=== PATIENT | male | born 1970 | race Caucasian/White ===

== ENCOUNTER 2016-07-06 10:06 | Emergency (ER) | payer MEDICARE, MEDICAID ==
[2016-07-06 10:31] VITALS: TEMP 98.5
--- NOTE | 2016-07-06 11:35 | RAD ---
EXAM DESCRIPTION: X-RAY CHEST- TWO VIEWS CLINICAL HISTORY: Chest pain. COMPARISON: 06/20/2016 TECHNIQUE: 2.0 views of the chest FINDINGS: There are no discrete air space infiltrates, pneumothoraces or pleural effusions. The pulmonary vascularity is normal. The cardiomediastinal silhouette is stable. IMPRESSION: There are no acute lung parenchymal findings. Electronically signed by: Sadi Villeda MD 07/06/2016 11:33
--- NOTE | 2016-07-06 11:52 | ED.PDOC ---
History of Present Illness - General Chief Complaint: Chest Pain/HI Stated Complaint: chest pain Time Seen by Provider: 07/06/16 10:16 Source: patient, RN notes reviewed, Vital Signs reviewed, family Exam Limitations: no limitations - History of Present Illness Initial Comments: Patient is a 45 y/o male who reports he has chest pain. This is an ongoing problem. He was admitted too [facility] two weeks ago for a cardiac workup , which did not show any acute cardiac issues. 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 He does not yet have an appointment. Today the pressure worsened. It is currently 5-6/10. He reports shortness of breath, nausea, diaphoresis and dizziness along with the pain. He currently has one of his father's Nitro patches on (0.4) which has helped with the pain. He also reports a headache. Patient's risk factors: Obese, smoker, father with HI prior to age 50, hyperlipidemia, male. Timing/Duration: getting worse, other - 2 months Severity/Quality: moderate Location: substernal Chest Pain Radiation: neck Activities at Onset: activity - Light Prior Chest Pain/Cardiac Workup: angina, cardiolye scan, echocardiography Improving Factors: medication Worsening Factors: movement Aspirin Treatment Today: provided at home Associated Symptoms: diaphoresis, dizziness, fatigue, headache, nausea/vomiting , shortness of breath, weakness Allergies/Adverse Reactions: Allergies NO KNOWN ALLERGY Allergy (Verified 06/20/16 21:27) Home Medications: Ambulatory Orders Allopurinol [Zyloprim] 100 mg PO BID 09/21/12 Fluoxetine HCl [Prozac] 20 mg PO DAILY 09/21/12 [place] Carbonate [[place] Carbonate ER] 600 mg PO BID 09/21/12 Folic Acid 1 mg PO DAILY 09/04/14 HYDROcodone 7.5MG/APAP 325MG [[place] 7.5/325] 1 ea PO TID 09/04/14 Aspirin [Baby Aspirin] 81 mg PO QD #60 tab 12/16/14 Etanercept [Enbrel] 50 mg SC WKLY 07/06/16 Lisinopril & Hydrochlorothiazi [Lisinopril/Hctz 10-12.5 mg] 1 tab PO DAILY 07/06 Pravachol 07/06/16 Testosterone Cypionate 200 mg IM .[id number] 07/06/16 Past Medical History (General) - Patient Medical History Hx Seizures: No Hx Stroke: No Hx Dementia: No Hx Asthma: No Hx of COPD: No Hx Cardiac Disorders: Yes Hx Congestive Heart Failure: No Hx Pacemaker: No Hx Hypertension: Yes Hx Thyroid Disease: No Hx Diabetes: No Hx Gastroesophageal Reflux: No Hx Renal Disease: No Hx Cancer: No Hx of HIV: No Hx Hepatitis C: No Hx MRSA: Yes - Arm Wound 2015 MRSA Source:: Wound - Vaccination History Hx Tetanus, Diphtheria Vaccination: No Hx Influenza Vaccination: Yes Hx Pneumococcal Vaccination: No - Social History Hx Tobacco Use: Yes Hx Alcohol Use: No Hx Substance Use: Yes - Marijuana Hx Substance Use Treatment: No Hx Depression: Yes - Female History Patient : No Family Medical History - Family History Mother Family History: Unknown Hx Family Hypertension: Yes Hx Cardiac Disease: Yes - Father states he was diagnosed with first HI at 36 y/o Progress - Results/Orders Results/Orders: 07/06/16 07/06/16 07/06/16 10:27 10:37 12:06 Temperature 98.5 F Pulse Rate [ 82 78 73 Left Brachial] Respiratory 22 20 Rate Blood Pressure 153/100 122/73 [Left Arm] O2 Sat by Pulse 95 94 L Oximetry 07/06/16 10:33 EKG Assessment ONCE 07/06/16 10:45 EKG STAT 07/06/16 12:15 EKG STAT Laboratory Results WBC 8.7 K/mm3 (4.8-10.8) 07/06/16 11:10 RBC 4.95 M/mm3 (4.70-6.10) 07/06/16 11:10 Hgb 15.7 gm/dL (14.0-18.0) 07/06/16 11:10 Hct 45.7 % (42.0-52.0) 07/06/16 11:10 MCV 92.3 fl (80.0-94.0) 07/06/16 11:10 MCH 31.7 pg (27.0-31.0) H 07/06/16 11:10 MCHC 34.4 g/dL (33.0-37.0) 07/06/16 11:10 RDW 12.9 % (11.5-14.5) 07/06/16 11:10 Plt Count 220 K/mm3 (130-400) 07/06/16 11:10 MPV 7.9 fl (7.40-10.4) 07/06/16 11:10 Absolute Neuts (auto) 6.20 K/uL (1.8-6.8) 07/06/16 11:10 Absolute Lymphs (auto) 1.60 K/uL (1.0-3.4) 07/06/16 11:10 Absolute Monos (auto) 0.40 K/uL (0.2-0.8) 07/06/16 11:10 Absolute Eos (auto) 0.40 K/uL (0.0-0.4) 07/06/16 11:10 Absolute Basos (auto) 0.00 K/uL (0.0-0.1) 07/06/16 11:10 Neutrophils % 72.0 % (42.0-78.0) 07/06/16 11:10 Lymphocytes % 18.2 % (20.0-50.0) L 07/06/16 11:10 Monocytes % 4.7 % (2.0-9.0) 07/06/16 11:10 Eosinophils % 4.7 % (1.0-5.0) 07/06/16 11:10 Basophils % 0.4 % (0.0-2.0) 07/06/16 11:10 PT 10.1 SECONDS (9.4-12.5) 07/06/16 11:10 INR 0.890 07/06/16 11:10 PTT (SP) 34.8 SECONDS (25.1-36.5) 07/06/16 11:10 Sodium 138 mmol/L (135-145) 07/06/16 11:10 Potassium 3.9 mmol/L (3.6-5.0) 07/06/16 11:10 Chloride 102 mmol/L (101-111) 07/06/16 11:10 Carbon Dioxide 31 mmol/L (21-31) 07/06/16 11:10 Anion Gap 8.9 (12-18) L 07/06/16 11:10 BUN 17 mg/dL (7-18) 07/06/16 11:10 Creatinine 0.82 mg/dL (0.6-1.3) 07/06/16 11:10 BUN/Creatinine Ratio 20.7 (10-20) H 07/06/16 11:10 Random Glucose 113 mg/dL (70-105) H 07/06/16 11:10 Serum Osmolality 278.0 mOsm/L (275-295) 07/06/16 11:10 Calcium 9.5 mg/dL (8.4-10.2) 07/06/16 11:10 Magnesium 2.0 mg/dL (1.8-2.5) 07/06/16 11:10 Total Bilirubin 0.6 mg/dL (0.2-1.0) 07/06/16 11:10 Direct Bilirubin < 0.1 mg/dL (0-0.2) 07/06/16 11:10 Indirect Bilirubin 0.5 mg/dL (0.2-0.8) 07/06/16 11:10 AST 25 IU/L (10-42) 07/06/16 11:10 ALT 28 IU/L (10-60) 07/06/16 11:10 Alkaline Phosphatase 28 IU/L (42-121) L 07/06/16 11:10 Creatine Kinase 129 IU/L (38-174) 07/06/16 12:15 CK-MB (CK-2) 5.5 ng/mL (0.0-4.4) H* 07/06/16 12:15 CK-MB (CK-2) % 4.26 % (0.0-3.5) H 07/06/16 12:15 Troponin I 0.06 ng/mL (0.01-0.05) H 07/06/16 12:15 B-Natriuretic Peptide 25.0 pg/ml (0-100) 07/06/16 11:10 Serum Total Protein 7.2 gm/dL (6.4-8.2) 07/06/16 11:10 Albumin 4.0 g/dl (3.2-5.5) 07/06/16 11:10 - EKG/XRAY/CT EKG: Sinus, no ST T wave changes Comments: 81 bpm, Nml axis, Nml intervals, No comparison, Normal Sinus Rhythm XRAY: chest Xray Comments: No acute process - Additional EKG/XRAY/Consults EKG #2: Sinus, no ST T wave changes Comments: 66 bpm, Nml axis, Nml Intervals, No change from earlier EKG. NSR Departure - Departure Clinical Impression: Elevation of cardiac enzymes Chest pain Qualifiers: Chest pain type: unspecified Qualifier Code: (R07.9) Chest pain, unspecified Time of Disposition: 13:32 Disposition: Transfer to Hospital Condition: Good Home Medications: Ambulatory Orders Allopurinol [Zyloprim] 100 mg PO BID 09/21/12 Fluoxetine HCl [Prozac] 20 mg PO DAILY 09/21/12 [place] Carbonate [[place] Carbonate ER] 600 mg PO BID 09/21/12 Folic Acid 1 mg PO DAILY 09/04/14 HYDROcodone 7.5MG/APAP 325MG [[place] 7.5/325] 1 ea PO TID 09/04/14 Aspirin [Baby Aspirin] 81 mg PO QD #60 tab 12/16/14 Etanercept [Enbrel] 50 mg SC WKLY 07/06/16 Lisinopril & Hydrochlorothiazi [Lisinopril/Hctz 10-12.5 mg] 1 tab PO DAILY 07/06 Pravachol 07/06/16 Testosterone Cypionate 200 mg IM .[id number] 07/06/16 Transfer to Outside Facility - Transfer Information Accepting Provider:: Dr. Prince Accepting Facility: [facility] Reason for Transfer: required specialist not available - Cardiology
[2016-07-06 14:52] VITALS: O2SAT 94
[2016-07-06 16:15] VITALS: BP 133/70
== END 2016-07-06 16:15 | disposition short-term general hospital (02) ==
LOC: ER 10:06
DX: R07.9 Chest pain, unspecified (principal); R79.89 Other specified abnormal findings of blood chemistry; I10 Essential (primary) hypertension; R51 Headache; Z79.82 Long term (current) use of aspirin; Z79.899 Other long term (current) drug therapy; Z82.49 Family history of ischemic heart disease and other diseases of the circulatory system; Z87.891 Personal history of nicotine dependence; Z86.14 Personal history of Methicillin resistant Staphylococcus aureus infection

== ENCOUNTER → 2016-09-26 | Outpatient (CLI) | payer MEDICARE, MEDICAID | END | disposition home or self-care (01) | LOC: LAB.O 12:01 | PROVIDERS: ATTEND Psychiatry & Neurology Neurology | DX: R53.83 Other fatigue (principal); M79.A9 Nontraumatic compartment syndrome of other sites; M15.0 Primary generalized (osteo)arthritis; R51 Headache; M51.16 Intervertebral disc disorders with radiculopathy, lumbar region; M35.1 Other overlap syndromes; M35.3 Polymyalgia rheumatica; I73.00 Raynaud's syndrome without gangrene; G25.89 Other specified extrapyramidal and movement disorders; M06.9 Rheumatoid arthritis, unspecified; D86.9 Sarcoidosis, unspecified; M35.00 Sjogren syndrome, unspecified; G47.30 Sleep apnea, unspecified; M32.10 Systemic lupus erythematosus, organ or system involvement unspecified; M31.6 Other giant cell arteritis; I77.9 Disorder of arteries and arterioles, unspecified; E53.8 Deficiency of other specified B group vitamins; R41.3 Other amnesia ==

== ENCOUNTER → 2016-11-06 | Outpatient (CLI) | payer MEDICARE, MEDICAID ==
--- NOTE | 2016-11-07 10:19 | MRI ---
EXAM DESCRIPTION: Cervical Spine CLINICAL HISTORY: 46 years,Male,RADICULOPATHY COMPARISON: None TECHNIQUE: MRI performed multiple sequences of the cervical spine. FINDINGS: There is some motion artifact especially on the axials degrading quality exam slightly. The signal in the cervical vertebral bodies are unremarkable. But the cervical column is straightened. The cervical cord is normal signal and morphology. Surrounding soft tissues unremarkable. Dense and arch of C1: unremarkable. C2-3: There is no significant loss of disc height. There is minimal broad-based disc bulge. Facets are unremarkable for age. No neural foraminal stenosis. No spinal canal stenosis. C3-4: There is no significant loss of disc height. There is minimal broad-based disc bulge. Facets are unremarkable for age. No neural foraminal stenosis. No spinal canal stenosis. C4-5: There is no significant loss of disc height. There is minimal if any broad-based disc bulge. Facets are unremarkable for age. No neural foraminal stenosis. No spinal canal stenosis. C5-6: There is minimal to mild loss of disc height. There is mild annular disc bulge worse at the posterior lateral aspects. Facets are may be hypertrophic. There may be some mild right and minimal left neural foraminal stenosis but difficult to assess due to motion.. No spinal canal stenosis. C6-7: There is no significant loss of disc height. There is no disc bulge. Facets are unremarkable for age. No neural foraminal stenosis. No spinal canal stenosis. C7-T1:There is mild loss of disc height. There is mild broad-based disc bulge. Facets are maybe some mild hypertrophy. Minimal neural foraminal stenosis. No spinal canal stenosis. IMPRESSION: There is some possible neural foraminal stenosis seen at C5-6 worse in mild on the right due to posterior lateral disc bulges. And possible minimal neural foraminal stenosis bilaterally at C7-T1 due to disc bulges well. And minimal facet arthropathy Electronically signed by: Tio Freedman MD 11/07/2016 10:18 AM CDT
--- NOTE | 2016-11-07 10:26 | MRI ---
EXAM DESCRIPTION: Lumbar Spine w/o Contrast CLINICAL HISTORY: 46 years,Male,RADICULPATHY COMPARISON: None TECHNIQUE: MRI before multiple sequences of the lumbar spine. FINDINGS: The vertebral bodies demonstrate normal signal and morphology. Spinal cord normal signal and morphology. Tip of the conus is at L1. Surrounding soft tissues unremarkable. L5-S1: Disk height is moderate severe loss. There is moderate annular disc bulge worse on the left paracentral aspect of up to 6 mm. The facettes mildly hypertrophic. There is moderate left lateral recess stenosis impinging upon the transversing S1 nerve root. There is moderate to severe bilateral neural foraminal stenosis. L4-5: Disk height is moderate loss. There is mild annular disc bulge. The facettes mildly hypertrophic. There is no spinal canal stenosis. There is moderate bilateral foraminal stenosis. L3-4: Disk height is unremarkable. There is mild annular disc bulge. The facettes moderate facet hypertrophy. There is no spinal canal stenosis. There is moderate to severe bilateral neural foraminal stenosis. L2-3: Disk height is unremarkable. There is minimal annular disc bulge. The facettes moderate facet hypertrophy. There is no spinal canal stenosis. There is minimal bilateral neural foraminal stenosis. L1-2: Disk height is unremarkable. There is no significant disc bulge. The facettes moderate to severe facet hypertrophy. There is no spinal canal stenosis. There is minimal bilateral neural foraminal stenosis. IMPRESSION: There appears to be an element of congenitally small neural foramen that in conjunction with mostly mild disc bulges except for the lower two lumbar levels which are more moderate disc bulges and facet arthropathy which is worse and moderate to severe at the upper three levels. Left lateral recess stenosis at L5-S1 due to moderate disc bulge and osteophyte impinging upon the transversing S1 nerve root. Electronically signed by: Tio Freedman MD 11/07/2016 10:25 AM CDT
== END ==
LOC: MRI 10:08
PROVIDERS: ATTEND Psychiatry & Neurology Neurology
DX: M51.16 Intervertebral disc disorders with radiculopathy, lumbar region (principal); M54.12 Radiculopathy, cervical region; M05.59 Rheumatoid polyneuropathy with rheumatoid arthritis of multiple sites; G47.33 Obstructive sleep apnea (adult) (pediatric)

== ENCOUNTER → 2016-12-16 | Outpatient (CLI) | payer MEDICARE, MEDICAID | LOC: GMAM 11:16 | PROVIDERS: ATTEND Family Medicine | DX: R31.9 Hematuria, unspecified (principal); E29.1 Testicular hypofunction; I10 Essential (primary) hypertension; E04.9 Nontoxic goiter, unspecified; M10.9 Gout, unspecified | CPT/HCPCS: 84403; 84439; 84443; 84550; 87086; G0103 ==

== ENCOUNTER → 2017-08-21 | Outpatient (CLI) | payer MEDICARE, MEDICAID ==
--- NOTE | 2017-08-22 09:51 | MRI ---
EXAM DESCRIPTION: Lumbar Spine w/o Contrast MRI. CLINICAL HISTORY: LOW BACK PAIN COMPARISON: MRI lumbar spine 11/06/2016. TECHNIQUE: Multiplanar, multiple standard sequences, non contrast MRI, lumbar spine. FINDINGS: L5-S1: Minimal disc space loss. Desiccation of the disc. Grade 1 retrolisthesis. Posterior disc bulge with left posterior 6 mm protrusion encroaching on the upper lateral recess and abutting the descending left S1 nerve. Canal nearly stenotic. Facets and ligaments negative. Minimal anterior bulging and endplate ridging. Bilateral Modic type II endplate reactive changes with more disc space loss. Disc osteophyte complex encroaching on the right foramen which is stenotic. Disc bulge into the left foramen which is severely narrowed. L4-5: Disc degeneration and minimal disc space loss, more on the posterior margin. Posterior mild disc bulge with left paracentral 3 mm herniation and 9 mm extrusion encroaching on the thecal sac causing left lateral recess stenosis and impinging the descending left L5 nerve. Left paracentral canal stenosis. Right lateral recess unremarkable. Minimal facet arthrosis bilaterally negative flavum ligaments. Mild left foraminal narrowing moderate right foraminal narrowing. L3-4: Disc desiccation no disc space loss. Posterior 3 mm bulge in the midline. 5 mm protrusion into the left foramen abutting the exiting left L3 nerve. Mild right foraminal narrowing. Small inferior L3 Schmorl's node. Bilateral facet arthrosis and ligament flavum hypertrophy with moderate canal narrowing. L2-3: Minimal disc desiccation with tiny posterior bulge. Bilateral flavum ligament hypertrophy minimal facet arthrosis. Moderate canal narrowing. Bilateral foramina are patent. L1-2: Disc desiccation no disc space loss or bulging. Minimal arthrosis in flavum ligament hypertrophy. Mild canal narrowing. Bilateral foramina are patent. T12-L1: Normal signal in the disc with no bulging. Canal and foramina are patent. Posterior elements unremarkable. Paravertebral soft tissues show minimal paraspinal muscle atrophy.. Normal marrow signal in the remaining vertebral bodies and the posterior elements. Vertebral bodies are not compressed at any level. IMPRESSION: 1. Interval herniation of the L4-5 disc since the prior study, left posterior direction impinging the descending left L5 nerve with left lateral recess stenosis and borderline central canal stenosis.. Moderate right foraminal narrowing. 2. Left posterior protrusion L5-S1 disc just above the lateral recess abutting the descending left S1 nerve. Right foraminal stenosis by disc osteophyte complex encroaching on the right L5 nerve. This has progressed since the prior study. 3. 5 mm protrusion of the L3-4 disc into the left foramen abutting the left L3 nerve. Posterior disc bulge into the canal. Electronically signed by: Jose Diggs MD 08/22/2017 9:50 AM [facility]
== END ==
LOC: MRI 10:00
PROVIDERS: ATTEND Family Medicine
DX: M54.5 Low back pain (principal); M51.36 Other intervertebral disc degeneration, lumbar region

== ENCOUNTER 2017-08-25 16:56 | Emergency (ER) | payer MEDICARE, MEDICAID ==
[2017-08-25] MEDS ORDERED: HYDROmorphone HCL INJ 2 MG/ML VIAL IV ONE (19:33)
--- NOTE | 2017-08-25 19:38 | ED.PDOC ---
History of Present Illness - General Chief Complaint: Abdominal Pain Stated Complaint: Abdominal discomfort Time Seen by Provider: 08/25/17 19:31 Information Source: patient, family Exam Limitations: no limitations - History of Present Illness Initial Comments: PERIUMBILICAL ABD PAIN. STARTED TODAY. CONSTANT. 04/14. NO NVD. POS FLATUS. POS NL BM TODAY. NO DYSURIA. H/O UMBILICAL HERNIA. WAS SCHEDULED FOR HENIA SURGERY BUT HAD CP THUS SURGEON CANCELED AND SENT FOR CARDIAC CLEARANCE. CARDS GAVE CLEARANCE AND NOW HE HAS NOT YET RESCHEDULED THE SURGERY. Abdominal Pain Onset Location: periumbilical Pain Radiation: no radiation Quality: severe, steady Timing/Duration: 4-6 hours Improving Factors: nothing Worsening Factors: nothing Associated Symptoms: denies symptoms Review of Systems - Review of Systems Constitutional: States: no symptoms reported EENTM: States: no symptoms reported Respiratory: States: no symptoms reported Cardiology: States: no symptoms reported Gastrointestinal/Abdominal: States: abdominal pain. Denies: constipation, diarrhea, nausea, vomiting Genitourinary: States: no symptoms reported Musculoskeletal: States: no symptoms reported Skin: States: no symptoms reported Neurological: States: no symptoms reported Endocrine: States: no symptoms reported Hematologic/Lymphatic: States: no symptoms reported All other Systems: Reviewed and Negative Past Medical History (General) - Patient Medical History Hx Seizures: No Hx Stroke: No Hx Dementia: No Hx Asthma: No Hx of COPD: No Hx Cardiac Disorders: Yes Hx Congestive Heart Failure: No Hx Pacemaker: No Hx Hypertension: Yes Hx Thyroid Disease: No Hx Diabetes: No Hx Gastroesophageal Reflux: No Hx Renal Disease: No Hx Cancer: No Hx of HIV: No Hx Hepatitis C: No Hx MRSA: Yes - Arm Wound 2015 MRSA Source:: Wound - Vaccination History Hx Tetanus, Diphtheria Vaccination: No Hx Influenza Vaccination: Yes Hx Pneumococcal Vaccination: No - Social History Hx Tobacco Use: Yes Hx Alcohol Use: No Hx Substance Use: Yes - Marijuana Hx Substance Use Treatment: No Hx Depression: Yes - Female History Patient : No Family Medical History - Family History Mother Family History: Unknown Hx Family Hypertension: Yes Hx Cardiac Disease: Yes - Father states he was diagnosed with first TN at 36 y/o Physical Exam - Physical Exam General Appearance: Alert, Well Nourished Eyes, Ears, Nose, Throat Exam: PERRL/EOMI, normal ENT inspection Neck: full range of motion, normal inspection Respiratory: chest non-tender, lungs clear Cardiovascular/Chest: normal peripheral pulses, regular rate, rhythm Peripheral Pulses: No deficit Gastrointestinal/Abdominal: normal bowel sounds, soft, no organomegaly, no pulsatile mass, tenderness, other - EXQUISITELY TTP UMBILICUS. TTP PERIUMBILICAL. NO PALPABLE HERNIA. UMBILICUS SOFT BUT TENDER. Back Exam: normal inspection, no CVA tenderness Extremity: non-tender, normal inspection Neurologic: no motor/sensory deficits, alert, normal mood/affect Skin Exam: normal color, warm/dry Lymphatic: no adenopathy Progress - Results/Orders Results/Orders: CBC - NEUTROPHILIC LEUKOCYTOSIS (WBC 11.5) CMP - MILD HYPONATREMIA (NA 133) UA - PROTEINURIA. CT ABD/PELVIS - SMALL FAT-CONTAINING LEFT PERIUMBILICAL VENTRAL HENIA DEFECT. SOFT/EASILY REDUCIBLE ON EXAM THUS NOT STRANGULATED, THUS NON-EMERGENT SURGICAL REPAIR IS INDICATED. Departure - Departure Clinical Impression: Periumbilical abdominal pain, Neutrophilic leukocytosis, Hyponatremia, Proteinuria, Periumbilical hernia Disposition: Discharge to Home or Self Care Condition: Good Departure Forms: ED Discharge - Pt. Copy, Patient Portal Self Enrollment Instructions: DI for Ventral Hernia Diet: resume usual diet Activity: increase activity as tolerated Referrals: Stephen Loaiza MD [Primary Care Provider] - 1-2 Weeks Prescriptions: Acetaminophen W/ Codeine [Tylenol W/ CODEINE #3] 1 ea PO Q6H PRN #20 PRN Reason: Pain Home Medications: Ambulatory Orders Allopurinol [Zyloprim] 100 mg PO BID 09/21/12 Fluoxetine HCl [Prozac] 20 mg PO DAILY 09/21/12 [place] Carbonate [[place] Carbonate ER] 600 mg PO BID 09/21/12 Folic Acid 1 mg PO DAILY 09/04/14 HYDROcodone 7.5MG/APAP 325MG [[place] 7.5/325] 1 ea PO TID 09/04/14 Aspirin [Baby Aspirin] 81 mg PO QD #60 tab 12/16/14 Etanercept [Enbrel] 50 mg SC WKLY 07/06/16 Lisinopril & Hydrochlorothiazi [Lisinopril/Hctz 10-12.5 mg] 1 tab PO DAILY 07/06 Pravachol 07/06/16 Testosterone Cypionate 200 mg IM .[id number] 07/06/16 Acetaminophen W/ Codeine [Tylenol W/ CODEINE #3] 1 ea PO Q6H PRN #20 08/25/17 Additional Instructions: Please call your general surgeon tomorrow to schedule the hernia repair soon. Do not take codeine at the same time as hydrocodone, as it can cause life- threatening breathing troubles.
--- NOTE | 2017-08-25 20:47 | CT ---
PROCEDURE: Abdomen/Pelvis w/Contrast HISTORY: history of umbilical hernia Indication: Same as above Comparison: None . Technique: CT of the abdomen and pelvis was done with intravenous contrast. Images were obtained from the lung base to the level of the pubic symphysis in axial plane, followed by orthogonal sagittal and coronal reconstruction. Oral contrast was not given for the study. The patient was injected with contrast intravenously, without any documented immediate adverse reactions. This exam was performed according to our departmental dose-optimization program, which includes automated exposure control, adjustment of the mA and/or KV according to the patient's size and/or use of iterative reconstruction technique. FINDINGS: Images through the lung bases do not show any focal infiltrates or pleural effusions. The liver, gallbladder, pancreas, spleen and the left adrenal gland appear unremarkable. There is presence of a 2.7 x 1.6 cm benign fat-containing right adrenal adenoma Given the limitation of presence of radiographic contrast in the kidneys that is probably 2 mm nonobstructive calculus in the upper pole of the right kidney. There is no hydroureteronephrosis on either side The urinary bladder is unremarkable . The small bowel appears unremarkable, without any evidence of small bowel obstruction or bowel wall thickening. There is no CT evidence of acute appendicitis, pericecal inflammatory change or ileocecal mesenteric adenitis. The ileocecal junction appears unremarkable. There is no CT evidence of acute colonic diverticulitis or colitis or large bowel obstruction. The splenic and portal veins are of normal caliber, without any filling defects. There is no pathological lymphadenopathy in the retroperitoneum or in the pelvic region. There is no evidence of free fluid or free air in the abdomen or the pelvic region. There is no clinically significant abdominal aortic aneurysm. There is a small fat-containing left periumbilical ventral hernia defect The visualized lumbar spine shows degenerative change at L5/S1 level . The paravertebral soft tissues are unremarkable. The remainder of the pelvic structures are unremarkable. IMPRESSION: There is a small fat-containing left periumbilical ventral hernia defect. There is presence of a 2.7 x 1.6 cm benign fat-containing right adrenal adenoma Given the limitation of presence of radiographic contrast in the kidneys that is probably 2 mm nonobstructive calculus in the upper pole of the right kidney. There is no hydroureteronephrosis on either side Electronically signed by: Sadi Villeda MD 08/25/2017 8:46 PM DIRECTOR MICROBIOLOGY Workstation: [id number]
[2017-08-25 21:14] VITALS: BP 132/74; TEMP 98; O2SAT 98
== END 2017-08-25 21:14 | disposition home or self-care (01) ==
LOC: ER 16:56
DX: K42.9 Umbilical hernia without obstruction or gangrene (principal); E87.1 Hypo-osmolality and hyponatremia; D72.829 Elevated white blood cell count, unspecified; I10 Essential (primary) hypertension
CPT/HCPCS: 36415; 74177; 80053; 81001; 85025; J1170

== ENCOUNTER 2017-09-15 05:41 | Day surgery (SDC) | payer MEDICARE, MEDICAID ==
[2017-09-15] MEDS ORDERED: ceFAZolin SODIUM 1 GM VIAL ONE (07:07)
[2017-09-15] MEDS ORDERED: LACTATED RINGERS 1,000 ML ONE (07:07)
[2017-09-15] MEDS ORDERED: SODIUM CHL 0.9% 100ML MINI-BAG 100 ML IVPB ONE (07:07)
--- NOTE | 2017-09-15 07:33 | RAD ---
EXAM DESCRIPTION: Chest,2 Views CLINICAL HISTORY: PRE OP COMPARISON: July 06, 2016 FINDINGS: Two-view chest x-ray shows cardiomediastinal silhouette and pulmonary vasculature to be within normal limits. The lungs are normally aerated and clear. Costophrenic angles are sharp. Right costophrenic angle is not included on the PA projection. Mild disc degenerative changes of the spine are seen. IMPRESSION: No radiographic evidence of acute cardiopulmonary disease. Electronically signed by: Art Jo MD 09/15/2017 7:32 AM CDT
[2017-09-15] MEDS ORDERED: BUPIVACAINE 0.25% W/EPI 50 ML VIAL INJ ONE (09:09)
[2017-09-15] MEDS ORDERED: MIDAZOLAM INJ 5 MG/5 ML VIAL ONE (09:58)
[2017-09-15] MEDS ORDERED: ROCURONIUM BROMIDE 10 MG/ML VIAL ONE ×2 (09:59→10:25)
[2017-09-15] MEDS ORDERED: fentaNYL CITRATE INJ 50 MCG/ML AMP ONE (09:59)
[2017-09-15] MEDS ORDERED: SUGAMMADEX SODIUM 200 MG/2 ML VIAL IV ONE (10:08)
[2017-09-15] MEDS ORDERED: ELECTROLYTE-A 1,000 ML IVS ONE (11:27)
[2017-09-15] MEDS ORDERED: PROPOFOL 200 MG/20 ML VIAL IV ONE (12:00)
[2017-09-15] MEDS ORDERED: raNITIdine HCL INJ 25 MG/ML VIAL IV ONE (12:00)
[2017-09-15] MEDS ORDERED: LIDOCAINE 1% 10 ML VIAL INJ ONE (12:00)
[2017-09-15] MEDS ORDERED: METOCLOPRAMIDE HCL INJ 10 MG/2 ML VIAL IV ONE (12:00)
[2017-09-15] MEDS ORDERED: ePHEDrine SULF 50 MG/ML IV ONE (12:00)
[2017-09-15] MEDS ORDERED: HYDROCORTISONE SOD SUCC INJ 100 MG/2 ML VIAL IV ONE (12:00)
[2017-09-15] MEDS ORDERED: DEXAMETHASONE INJ 10 MG/ML VIAL IV ONE (12:00)
[2017-09-15] MEDS ORDERED: HYDROmorphone HCL INJ 2 MG/ML VIAL ONE (12:28)
[2017-09-15] MEDS ORDERED: LEVALBUTEROL NEBS 1.25 MG/3 ML VIAL NEB ONE (12:29)
--- NOTE | 2017-09-15 13:16 | OP ---
DATE OF PROCEDURE: 09/15/17 PREOPERATIVE DIAGNOSIS: 1. Incarcerated umbilical hernia. POSTOPERATIVE DIAGNOSIS: 1. Incarcerated umbilical hernia. PROCEDURE: 1. Repair of incarcerated umbilical hernia. SURGEON: Gulshan Pope MD. SOFTWARE TECHNICIAN: None. ANESTHESIA: Local infiltration of 1% lidocaine and general endotracheal anesthesia. INDICATION: The patient is a 46-year-old male who has had a tender mass at his umbilicus for some time. It has become much more uncomfortable. After cardiac clearance was obtained and he has been off Brilinta and aspirin for 5 days, he was brought to the Surgical Suite today for hernia repair. FINDINGS: The hernia defect was approximately 2 cm in greatest diameter. There was omentum within it including some that was somewhat cyanotic, but it pinked up after reduction. There hernia sac was also noted to be mottled and sent for pathological evaluation. PROCEDURE: After adequate general endotracheal anesthesia was obtained, the patient was prepped and draped in the usual sterile manner. At this point, a surgical time-out was taken. The infraumbilical area was infiltrated with local anesthesia. A curvilinear incision was made under the umbilicus with a sharp knife. Dissection was carried down through the skin and subcutaneous tissue using electrocautery and blunt dissection. The midline fascia was identified and it was dissected free circumferentially from around the hernia. When it had been dissected free, especially inferior, retractors were placed and the fascia at the base of the hernia inferiorly was opened using electrocautery and then dissection was carried for at least 90 degrees in each direction. The hernia sac was then explored with hemostats. The incarcerated tissue was reduced from the hernia sac. There was still surrounding mottle tissue which was probably preperitoneal fat. This was dissected free and clamped at its base and resected and sent for pathological evaluation. The bases were tied with 2-0 Vicryl ties. When this was done, the omentum was reduced below the floor of the canal. The defect and the omentum was irrigated with saline. Hemostasis was noted to be adequate. At this time, using electrocautery, the subcutaneous tissue was dissected free from the fascia circumferentially around the defect. At this point, the defect was closed with interrupted [id number] sutures of #1 PDS. These were all placed and then tightened and tied sequentially. When this was done, again the wound was irrigated with saline. An 8x5 cm oval-shaped Surgimesh patch was then sutured over the repair with interrupted 2-0 Prolene and then 2-0 Vicryl sutures. When this was done, again the wound was irrigated. Hemostasis was noted to be adequate. The umbilicus was then sutured to the abdominal wall and mesh with a single [id number] suture of 2-0 Prolene. The subcutaneous tissues were approximated with interrupted 2-0 and 3-0 Vicryl sutures in layers. Skin edges were approximated with skin stapler. Sterile pressure dressing was applied. An abdominal bind was applied. The patient was awakened and taken to the Recovery Room in good and stable condition. Estimated blood loss was approximately 50 mL. All sponge, needle and instrument counts were correct. #[id number] [facility]
[2017-09-15 14:05] VITALS: BP 130/81; TEMP 96.3; O2SAT 96
== END 2017-09-15 14:00 | disposition home or self-care (01) ==
LOC: AMB 05:41
PROVIDERS: ATTEND Surgery
DX: K42.0 Umbilical hernia with obstruction, without gangrene (principal); I10 Essential (primary) hypertension; I25.10 Atherosclerotic heart disease of native coronary artery without angina pectoris; F17.210 Nicotine dependence, cigarettes, uncomplicated; E66.01 Morbid (severe) obesity due to excess calories; Z68.41 Body mass index [BMI] 40.0-44.9, adult; Z79.02 Long term (current) use of antithrombotics/antiplatelets; Z79.82 Long term (current) use of aspirin; Z79.899 Other long term (current) drug therapy; Z88.8 Allergy status to other drugs, medicaments and biological substances
CPT/HCPCS: 00830; 36415; 36416; 49587; 71046; 80048; 81001; 82948; 85025; 88302; 93005; 94640; C1781; J0690; J1100; J1170; J1720; J2250; J2765; J2780; J3010; J3490; J7050; J7120; J7614

== ENCOUNTER → 2017-09-28 | Outpatient (CLI) | payer MEDICARE, MEDICAID | LOC: GMAM 11:39 | PROVIDERS: ATTEND Family Medicine | DX: E04.9 Nontoxic goiter, unspecified (principal); E29.1 Testicular hypofunction; M10.9 Gout, unspecified; R73.9 Hyperglycemia, unspecified; Z79.899 Other long term (current) drug therapy ==

== ENCOUNTER 2017-09-29 11:53 | Observation (INO) | payer MEDICARE, MEDICAID ==
--- NOTE | 2017-09-29 14:08 | RAD ---
EXAM DESCRIPTION: XR CHEST 2 VIEWS CLINICAL HISTORY: Atrial flutter COMPARISON: 09/14/2017 TECHNIQUE: PA/lateral FINDINGS: Heart size is normal. The lungs are clear. No acute bony abnormality. IMPRESSION: No acute cardiopulmonary process. Electronically signed by: Stephen Mulligan MD 09/29/2017 2:05 PM CDT
[2017-09-29] MEDS ORDERED: ENOXAPARIN SODIUM 100 MG/ML SYG SUBCU ONE ×2 (14:30→19:36)
[2017-09-29] MEDS ORDERED: METOPROLOL TARTRATE 25 MG TAB PO ONE (14:30)
--- NOTE | 2017-09-29 14:39 | ED.PDOC ---
History of Present Illness - General Chief Complaint: Cardiovascular Problem Stated Complaint: rapid heart rate Time Seen by Provider: 09/29/17 12:00 Source: patient Exam Limitations: no limitations - History of Present Illness Initial Comments: the patient is a 46-year-old male presenting to the emergency room after being sent over by his primary care doctor for a rapid heart rate. The patient has not noticed any palpitations. He has had some mild dizzy spells over the last week or so. No chest pain. No shortness of breath. No history of any atrial fibrillation or atrial flutter. He does have a history of some coronary artery disease and sees Dr. stoddard. He had a couple of stents placed more than a year ago. He is on brilinta. No evidence of congestive heart failure.the patient's only complaint currently is that he has not gotten to eat lunch yet. Timing/Duration: unsure Severity: mild Improving Factors: nothing Worsening Factors: nothing Associated Symptoms: denies symptoms Allergies/Adverse Reactions: Allergies Rizatriptan [From Maxalt] Allergy (Verified 09/14/17 15:23) Sumatriptan [From Imitrex] Allergy (Verified 09/14/17 15:23) Home Medications: Ambulatory Orders Allopurinol [Zyloprim] 200 mg PO BID 09/21/12 Fluoxetine HCl [Prozac] 20 mg PO DAILY 09/21/12 Milligan Carbonate [[place] Carbonate ER] 300 mg PO BID 09/21/12 HYDROcodone 7.5MG/APAP 325MG [[place] 7.5/325] 1 ea PO TID 09/04/14 Aspirin [Baby Aspirin] 81 mg PO QD #60 tab 12/16/14 Testosterone Cypionate 200 mg IM .[id number] 07/06/16 Carvedilol [Coreg] 3.125 mg PO DAILY 09/14/17 Celecoxib [Celebrex] 200 mg PO DAILY 09/14/17 Hydrochlorothiazide 12.5 mg PO DAILY 09/14/17 Lisinopril 20 mg PO DAILY 09/14/17 Pravastatin Sodium 40 mg PO DAILY 09/14/17 Pravastatin Sodium 40 mg PO DAILY 09/14/17 Ticagrelor [Brilinta] 90 mg PO BID 09/14/17 Review of Systems - Review of Systems Constitutional: States: no symptoms reported EENTM: States: no symptoms reported Respiratory: States: no symptoms reported Cardiology: States: no symptoms reported Gastrointestinal/Abdominal: States: no symptoms reported Genitourinary: States: no symptoms reported Musculoskeletal: States: no symptoms reported Skin: States: no symptoms reported Neurological: States: no symptoms reported Endocrine: States: no symptoms reported All other Systems: No Change from Baseline Past Medical History (General) - Patient Medical History Hx Seizures: No Hx Stroke: No Hx Dementia: No Hx Asthma: No Hx of COPD: No Hx Cardiac Disorders: Yes Hx Congestive Heart Failure: No Hx Pacemaker: No Hx Hypertension: Yes Hx Thyroid Disease: No Hx Diabetes: No Hx Gastroesophageal Reflux: No Hx Renal Disease: No Hx Cancer: No Hx of HIV: No Hx Hepatitis C: No Hx MRSA: Yes MRSA Source:: Wound - Vaccination History Hx Tetanus, Diphtheria Vaccination: No Hx Influenza Vaccination: No Hx Pneumococcal Vaccination: No - Social History Hx Tobacco Use: Yes Hx Alcohol Use: No Hx Substance Use: Yes - Marijuana Hx Substance Use Treatment: No Hx Depression: Yes - Female History Patient : No Family Medical History - Family History Mother Family History: Unknown Hx Family Hypertension: Yes Hx Cardiac Disease: Yes - Father states he was diagnosed with first FL at 36 y/o Physical Exam - Physical Exam General Appearance: Alert, Comfortable, No apparent distress Eye Exam: bilateral normal Ears, Nose, Throat: hearing grossly normal, normal ENT inspection, normal pharynx Neck: non-tender, full range of motion, supple Respiratory: lungs clear, normal breath sounds, no respiratory distress, no accessory muscle use Cardiovascular/Chest: normal peripheral pulses, no edema, tachycardia Peripheral Pulses: radial,right: 2+, radial,left: 2+, dorsalis pedis,right: 2+, dorsalis pedis,left: 2+ Gastrointestinal/Abdominal: non tender - obese, soft Rectal Exam: deferred Back Exam: normal inspection, no CVA tenderness Extremity: normal range of motion, non-tender, normal inspection, no pedal edema , normal capillary refill Neurologic: public health doctor II-XII nml as tested, no motor/sensory deficits, alert, normal mood/affect, oriented x 3 Skin Exam: normal color Comments: Vital Signs - 8 hr 09/29/17 09/29/17 11:58 12:12 Temperature 98.1 F Pulse Rate 138 H Pulse Rate [ 138 H Right Brachial] Respiratory 20 Rate Blood Pressure 119/104 [Right Arm] O2 Sat by Pulse 95 Oximetry Progress - Progress Progress: 09/29/17 14:41 the patient is a 46-year-old male presenting with atrial flutter with RVR that is essentially asymptomatic. It is unknown how long he has been in this rhythm. I have discussed this patient with Dr. Stoddard, who has recommended admitting overnight for observation and rate control as well as a dose of Lovenox. The patient has responded nicely to 1 dose of IV diltiazem. He is being given 1 dose of oral metoprolol 25 mg. He'll be monitored on telemetry monitoring. The plan will be to achieve rate control and have the patient follow up with Dr. Stoddard tomorrow at 1 PM for further management at his office. We will plan on repeating at least one set of cardiac enzymes of the patient is chest pain-free. - Results/Orders Results/Orders: Laboratory Tests 09/29/17 09/29/17 09/29/17 11:55 11:55 11:55 WBC 10.3 RBC 5.10 Hgb 15.9 Hct 46.4 MCV 90.8 MCH 31.2 H MCHC 34.4 RDW 13.3 Plt Count 292 MPV 7.7 Absolute Neuts (auto) 7.80 H Absolute Lymphs (auto) 1.70 Absolute Monos (auto) 0.50 Absolute Eos (auto) 0.30 Absolute Basos (auto) 0.00 Neutrophils % 75.2 Lymphocytes % 16.7 L Monocytes % 5.0 Eosinophils % 2.8 Basophils % 0.3 PT 11.0 INR 0.970 PTT (SP) 33.4 D-Dimer, Quantitative 233 H* Sodium 139 Potassium 4.6 Chloride 105 Carbon Dioxide 27 Anion Gap 11.6 L BUN 16 Creatinine 0.89 BUN/Creatinine Ratio 18.0 Random Glucose 117 H Serum Osmolality 279.8 Calcium 9.6 Magnesium 1.9 Total Bilirubin 0.7 AST 26 ALT 30 Alkaline Phosphatase 35 L Creatine Kinase 49 CK-MB (CK-2) 2.7 CK-MB (CK-2) % Not Reportable Troponin I 0.02 B-Natriuretic Peptide 138.0 H Serum Total Protein 7.8 Albumin 3.8 Globulin 4.0 H Albumin/Globulin Ratio 1.0 L TSH 0.67 chest x-ray appears clear. No cardiomegaly. No infiltrates. No pneumothorax. EKG shows atrial flutter initially with a rate of 140 bpm. No definitive acute ST segment changes concerning for ischemia. Repeat EKG after diltiazem shows a rate of 77 bpm with underlying atrial flutter. No definitive acute ST segment changes concerning for ischemia. Normal axis. Departure - Departure Clinical Impression: Atrial flutter with rapid ventricular response Disposition: Admit Patient Referrals: Stephen Loaiza MD [Primary Care Provider] - 1-2 Weeks Home Medications: Ambulatory Orders Allopurinol [Zyloprim] 200 mg PO BID 09/21/12 Fluoxetine HCl [Prozac] 20 mg PO DAILY 09/21/12 Milligan Carbonate [[place] Carbonate ER] 300 mg PO BID 09/21/12 HYDROcodone 7.5MG/APAP 325MG [[place] 7.5/325] 1 ea PO TID 09/04/14 Aspirin [Baby Aspirin] 81 mg PO QD #60 tab 12/16/14 Testosterone Cypionate 200 mg IM .[id number] 07/06/16 Carvedilol [Coreg] 3.125 mg PO DAILY 09/14/17 Celecoxib [Celebrex] 200 mg PO DAILY 09/14/17 Hydrochlorothiazide 12.5 mg PO DAILY 09/14/17 Lisinopril 20 mg PO DAILY 09/14/17 Pravastatin Sodium 40 mg PO DAILY 09/14/17 Pravastatin Sodium 40 mg PO DAILY 09/14/17 Ticagrelor [Brilinta] 90 mg PO BID 09/14/17 Decision To Admit - Decistion To Admit Decision to Admit Reason: Medical Nature Decision to Admit Date: 09/29/17 Decision to Admit Time: 14:44
--- NOTE | 2017-09-29 15:02 | HP ---
CHIEF COMPLAINT: Shortness of breath. SUPERVISING PHYSICIAN: Boris Noble MD HISTORY OF PRESENT ILLNESS: This is a 46 year-old male patient with an extensive past medical history here. He was in his usual state of health when he went to his regular doctor appointment today at Dr. Loaiza's office. At Dr. Loaiza's office, he was noted to have an elevated heart rate. They did an EKG and noted him to have atrial fibrillation at that time. Therefore, he was sent to the Emergency Room. In the Emergency Room, he was evaluated to still have atrial fibrillation. At that point, he was given [address] Stoddard is the patient's knitter helper and he was actually contacted by the Emergency Room physician. The knitter helper wanted him to have 25 mg of metoprolol and Lovenox at 1 mg per kilogram. He wanted him to be monitored here overnight and see him in his office tomorrow. Therefore, the patient has been referred for admission. At time of examination, the patient is alert and oriented without distress. He states his only complaint is really shortness of breath but he has not had any palpitations or chest pain. The patient does have a history of coronary artery disease. He has had 2 stents, one in the RCA and one in the LAD. He actually just had a stress test in March which was normal. This stress test was a preoperative evaluation for hernia repair. I do see on the report that he has an ejection fraction of 57% but I do not see any right heart pressures or evaluation of his atria. PAST MEDICAL HISTORY: 1. Coronary artery disease status post PTCA and a stent to the RCA and the LAD. 2. Hypertension. 3. Myocardial infarction. 4. Obstructive sleep apnea for which he uses a CPAP. 5. Rheumatoid arthritis. 6. Degenerative disk disease. 7. Peripheral neuropathy. 8. Benign prostatic hypertrophy. 9. Erectile dysfunction. 10. Testosterone deficiency. 11. Bipolar disorder. PAST SURGICAL HISTORY: 1. Umbilical hernia repair. 2. PTCA with stents x2, one to the RCA and one to the LAD. 3. Knee surgery. CURRENT MEDICATIONS: 1. [place] 7.5 mg every 6 hours p.r.n. 2. Allopurinol 100 mg p.o. b.i.d. 3 Carvedilol 3.125 mg p.o. daily. 4. Proventil 90 mg, 1 tablet by mouth b.i.d. 5. Nitroglycerin 0.4 mg sublingual every 5 minutes p.r.n. for chest pain. 6. Lisinopril 20 mg p.o. daily. 7. Pravastatin 20 mg p.o. daily. 8. Testosterone 300 mg IM every 10 days. 9. Hydrochlorothiazide 12.5 mg p.o. daily. 10. Prozac 20 mg, 2 capsules in the morning. 11. Celebrex 400 mg, 1 capsule daily. 12. [place] carbonate 150 mg, 2 capsules by mouth b.i.d. 13. Plaquenil 200 mg, one-half tablet b.i.d. 14. Aspirin 81 mg p.o. daily. ALLERGIES: IMITREX AND MAXALT FAMILY HISTORY: Father has coronary artery disease, hypertension and lupus. Mother has Sjogren's syndrome and lupus. Brother has hepatitis C. A son with attention deficit hyperactivity disorder. SOCIAL HISTORY: The patient smokes, does drink beer on a regular basis but not to excess. No illegal drugs. REVIEW OF SYSTEMS: CONSTITUTIONAL: No fever or chills. No recent weight loss or weight gain. No malaise. HEENT: No headaches, vision changes, ear pain, nasal congestion or throat pain. RESPIRATORY: Positive for some shortness of breath but no cough, hemoptysis or pleuritic chest pain. CARDIOVASCULAR: No chest pain, palpitations or peripheral edema. GI: No nausea, vomiting, diarrhea or constipation or abdominal pain. : No dysuria, frequency or flank pain. ENDOCRINE: No polydipsia, polyuria or polyphagia. No heat or cold intolerance. MUSCULOSKELETAL: Does have some back pain but no muscle cramps or joint swelling. HEMATOLOGIC: No easy bruising or transfusion reactions. PSYCHIATRIC: He does have a history of bipolar disorder, not having any suicidal ideation. NEUROLOGIC: No dizziness, paresthesias or syncope. : PHYSICAL EXAMINATION: VITAL SIGNS: Blood pressure 105/63, heart rate 81, respiratory rate 20, temperature 98.1. Oxygen saturation 97%. GENERAL: Mr. Roy is a 46 year-old male patient in no active distress. HEENT: Head normocephalic and atraumatic. Eyes: pupils are equal and reactive. Nose with no drainage. Throat with a moist mucosa. NECK: Supple, midline trachea. No jugular venous distention. CHEST: Symmetrical with equal rise and fall of the chest with inspiration and expiration. Lung sounds are clear to auscultation bilaterally. CARDIOVASCULAR: The patient has an irregular rate and rhythm, definite atrial flutter per the jig borer. There is a normal S1 and S2. I do not hear any murmur at this time. ABDOMEN: Obese, soft, positive bowel sounds. Non-tender to palpation. No organomegaly. : Exam is deferred. EXTREMITIES: Lower extremities with no edema. Pulses are 2+. Capillary refill less than 2 seconds. NEUROLOGIC: The patient is alert and oriented and moves all extremities. Extraocular movements are intact. There are no focal deficits. LABS AND FILMS: Are reviewed via the EMR. The chest x-ray does not show any acute cardiopulmonary process. His CBC is normal as well as chemistry showing a mild elevation in glucose at 117, otherwise is unremarkable. BNP was 138. TSH 0.67. ASSESSMENT: 1. New onset atrial flutter with rapid ventricular response status post administration of Diltiazem IV as well as p.o. metoprolol. 2. History of coronary artery disease status post LAD and RCA stents in the past. 3. Hypertension. 4. Obstructive sleep apnea with utilization of CPAP. 5. History of bipolar disorder. PLAN: 1. At this time, I will go ahead and order b.i.d. dosing of metoprolol 25 mg b.i.d.. Also, I am going to order additional dosing of the 1 mg/kg of Lovenox which will be 115 mg. He got a dose at approximately 3 o'clock so he will get a second dose at 3:00 in the morning. I will resume his home medications once they are verified except fo the carvedilol. I will replace the carvedilol with metoprolol in hopes that his heart rate will stay controlled. Dr. Stoddard has already been notified and the patient is supposed to be seen in his office around 1 o'clock in the afternoon tomorrow so pending everything stays stable overnight, he will be discharged tomorrow morning and go to his appointment at Dr. Stoddard's office. Will recheck an EKG in the morning. #[id number] [facility]
[2017-09-29] MEDS ORDERED: SODIUM CHLORIDE 0.9% (FLUSH) 10 ML SYG IV PRN (15:52)
[2017-09-29] MEDS ORDERED: IV SET AND CAP CHANGE INJ INJ SCH (16:00)
[2017-09-29] MEDS: ASPIRIN (CHEWABLE) 81 MG TAB PO SCH (17:38)
[2017-09-29] MEDS: HYDROcodone 7.5MG/APAP 325MG 1 EA TAB PO PRN (17:40)
[2017-09-29] MEDS ORDERED: METOPROLOL TARTRATE 25 MG TAB ONE (19:34)
[2017-09-29] MEDS ORDERED: ALLOPURINOL 100 MG TAB ONE (19:34)
[2017-09-29] MEDS ORDERED: ENOXAPARIN SODIUM 60 MG/0.6 ML SYG SUBCU ONE (19:36)
[2017-09-29] MEDS ORDERED: ALLOPURINOL 300 MG TAB PO SCH (21:00)
[2017-09-29] MEDS ORDERED: LITHIUM CARBONATE 300 MG PO SCH (21:00)
[2017-09-29] MEDS: NON-FORMULARY MEDICATION 1 EA MIS (Ticagrelor [Brilinta] 90 MG) PO SCH (22:35)
[2017-09-29] MEDS: LITHIUM CARBONATE 150 MG CAP PO SCH (22:37)
[2017-09-29] MEDS: METOPROLOL TARTRATE 25 MG TAB PO SCH (23:56)
[2017-09-30] MEDS ORDERED: LISINOPRIL 10 MG TAB ONE (02:03)
[2017-09-30] MEDS ORDERED: CELECOXIB 100 MG CAP ONE (02:03)
[2017-09-30] MEDS ORDERED: PRAVASTATIN SODIUM 20 MG TAB ONE (02:04)
[2017-09-30] MEDS ORDERED: ALLOPURINOL 100 MG TAB ONE (02:04)
[2017-09-30] MEDS ORDERED: ENOXAPARIN SODIUM 60 MG/0.6 ML SYG SUBCU SCH (03:00)
[2017-09-30] MEDS ORDERED: ENOXAPARIN SODIUM 100 MG/ML SYG SUBCU SCH (03:00)
[2017-09-30 03:16] VITALS: O2SAT 95
[2017-09-30] MEDS ORDERED: ACETAMINOPHEN 500 MG TAB PO ONE (05:22)
[2017-09-30] MEDS: METOPROLOL TARTRATE 25 MG TAB PO SCH (07:18)
[2017-09-30] MEDS: HYDROcodone 7.5MG/APAP 325MG 1 EA TAB PO PRN (08:22)
[2017-09-30] MEDS: LITHIUM CARBONATE 150 MG CAP PO SCH (08:24)
[2017-09-30] MEDS: ASPIRIN (CHEWABLE) 81 MG TAB PO SCH (08:24)
[2017-09-30] MEDS: NON-FORMULARY MEDICATION 1 EA MIS (Ticagrelor [Brilinta] 90 MG) PO SCH (08:26)
[2017-09-30] MEDS ORDERED: PRAVASTATIN SODIUM 20 MG TAB PO SCH (09:00)
[2017-09-30] MEDS ORDERED: CELECOXIB 100 MG CAP PO SCH (09:00)
[2017-09-30] MEDS ORDERED: LISINOPRIL 10 MG TAB PO SCH (09:00)
[2017-09-30] MEDS ORDERED: hydroCHLOROthiazide 12.5 MG CAP PO SCH (09:00)
[2017-09-30] MEDS ORDERED: ALLOPURINOL 100 MG TAB PO SCH (09:00)
[2017-09-30] MEDS ORDERED: FLUoxetine HCL 20 MG CAP PO SCH (09:00)
[2017-09-30 10:44] VITALS: BP 117/77; TEMP 98.6
--- NOTE | 2017-09-30 18:48 | DS ---
SUPERVISING PHYSICIAN: Boris Noble M.D. ADMISSION DIAGNOSIS: 1. New onset atrial flutter with rapid ventricular response. 2. History of coronary artery disease status post LAD and RCA stents in the past. 3. Hypertension. 4. Obstructive sleep apnea. 5. History of bipolar disorder. DISCHARGE DIAGNOSIS: 1. New onset atrial flutter with rapid ventricular response with resulting controlled rate after Diltiazem and metoprolol. 2. History of coronary artery disease status post LAD and RCA stents in the past. 3. Hypertension. 4. Obstructive sleep apnea with utilization of CPAP. 5. History of bipolar disorder. HOSPITAL COURSE: This is a 46 year-old male patient with an extensive past medical history that was brought to the E. R. after being seen initially at Dr. Loaiza's office. He was at a regular appointment at Dr. Loaiza's office and was not having any symptoms other than occasional shortness of breath. He was noted in the office to have an elevated heart rate, therefore an EKG was done which showed atrial flutter with rapid ventricular response. For that reason he was sent to the E. R. In the E. R. he was given 10 mg of Diltiazem followed by 25 mg p.o. of metoprolol after speaking with furnace clerk, Dr. Stoddard from [place]. At that point, his heart rate had gone down into the 70s. He was also given 1 mg per kg of Lovenox and referred for observation. It was decided that he would go to Dr. Stoddard's office at 1:00 PM the day after admission which is today to be evaluated at that point, but to keep him here overnight to ensure there were no further issues. Overnight the patient's heart rate remained in acceptable range. He got another dose of metoprolol and another dose of Lovenox. He did have some exertional dyspnea as well as chest pressure at one point but this resolved once he got back in bed. We checked another troponin and it was negative. His morning EKG did not show any acute findings. Therefore he was discharged in stable condition this morning to go to the followup appointment with Dr. Stoddard. Discharge condition is stable. MEDICATIONS: He will continue his home medications, although Dr. Stoddard will address his metoprolol as well as anticoagulation. Discharge diet is as per previous diet prior to admission. Followup appointment is with Dr. Stoddard at 1:00 PM today as well as Dr. Loaiza in 1 to 2 weeks. #[id number] [facility]
== END 2017-09-30 11:25 | disposition home or self-care (01) ==
LOC: ER 11:53 → MS 15:02
PROVIDERS: ADMIT Nurse Practitioner; ATTEND Nurse Practitioner
DX: I48.92 Unspecified atrial flutter (principal); I25.10 Atherosclerotic heart disease of native coronary artery without angina pectoris; I10 Essential (primary) hypertension; G47.33 Obstructive sleep apnea (adult) (pediatric); F31.9 Bipolar disorder, unspecified; I25.2 Old myocardial infarction; M06.9 Rheumatoid arthritis, unspecified; G62.9 Polyneuropathy, unspecified; F17.210 Nicotine dependence, cigarettes, uncomplicated; Z95.5 Presence of coronary angioplasty implant and graft; Z79.82 Long term (current) use of aspirin; Z79.891 Long term (current) use of opiate analgesic; Z79.899 Other long term (current) drug therapy; Z88.8 Allergy status to other drugs, medicaments and biological substances; Z82.49 Family history of ischemic heart disease and other diseases of the circulatory system
CPT/HCPCS: 36415 ×2; 71046; 80053; 81001; 82550; 82553; 83735; 83880; 84443; 84484 ×2; 85025; 85379; 85610; 85730; 87070; 93005 ×4; 94760 ×2; 96372 ×2; 96374; 99284; G0378; J1650 ×3

== ENCOUNTER → 2017-12-04 | Outpatient (CLI) | payer MEDICARE, MEDICAID | LOC: LAB.O 13:49 | PROVIDERS: ATTEND Family Medicine | DX: Z79.899 Other long term (current) drug therapy (principal) ==

== ENCOUNTER 2017-12-19 08:46 | Observation (INO) | payer MEDICARE, MEDICAID ==
[2017-12-19] MEDS ORDERED: SODIUM CHLORIDE 0.9% (FLUSH) 10 ML SYG IV PRN ×2 (08:54→13:35)
[2017-12-19] MEDS ORDERED: ASPIRIN TABLET 325 MG TAB PO ONE (08:54)
[2017-12-19] MEDS ORDERED: ASPIRIN (CHEWABLE) 81 MG TAB ONE ×2 (08:54→19:37)
[2017-12-19] MEDS ORDERED: NITROGLYCERIN 0.4 MG 25 EA TAB SL ONE (08:54)
--- NOTE | 2017-12-19 08:58 | ED.PDOC ---
History of Present Illness - General Chief Complaint: Chest Pain/MN Stated Complaint: chest pain Time Seen by Provider: 12/19/17 08:53 Source: patient - History of Present Illness Initial Comments: Anuj Roy 47 y/o male patient stated that he got up and went to get water had onset of sharp chest pains raditing to his back and felt clammy.No SOB,No N/ V.Had taken one NTG an baby ASA before being brought here by his dad. Timing/Duration: 1 hour Severity: moderate Location: central Activities at Onset: activity Prior Chest Pain/Cardiac Workup: cardiac cath, echocardiography, other - cardiac stent Improving Factors: rest Worsening Factors: movement Nitro Today/Relief: 0.4 mg x 1, provided at home, mild relief Aspirin Treatment Today: 81 mg x 1 Associated Symptoms: other - see hpi Allergies/Adverse Reactions: Allergies Rizatriptan [From Maxalt] Allergy (Verified 09/14/17 15:23) Sumatriptan [From Imitrex] Allergy (Verified 09/14/17 15:23) Home Medications: Ambulatory Orders Allopurinol [Zyloprim] 200 mg PO BID 09/21/12 Fluoxetine HCl [Prozac] 40 mg PO DAILY 09/21/12 [place] Carbonate [[place] Carbonate ER] 300 mg PO BID 09/21/12 HYDROcodone 7.5MG/APAP 325MG [[place] 7.5/325] 1 ea PO Q6H 09/04/14 Aspirin [Baby Aspirin] 81 mg PO QD #60 tab 12/16/14 Testosterone Cypionate 200 mg IM .[id number] 07/06/16 Carvedilol [Coreg] 3.125 mg PO DAILY 09/14/17 Celecoxib [Celebrex] 400 mg PO DAILY 09/14/17 Hydrochlorothiazide 12.5 mg PO DAILY 09/14/17 Lisinopril 20 mg PO DAILY 09/14/17 Pravastatin Sodium 40 mg PO DAILY 09/14/17 Ticagrelor [Brilinta] 90 mg PO BID 09/14/17 Apixaban [Eliquis] 5 mg PO BID 12/19/17 Famotidine 40 mg PO DAILY 12/19/17 Nitroglycerin 0.4 mg Tab [Nitrostat] 1 tablet SL Q5MIN 12/19/17 Ondansetron [Zofran Odt] 4 mg PO Q4H PRN 12/19/17 Propranolol HCl [Inderal] 40 mg PO DAILY 12/19/17 Review of Systems - Review of Systems Constitutional: States: no symptoms reported EENTM: States: no symptoms reported Respiratory: States: no symptoms reported Cardiology: States: see HPI Gastrointestinal/Abdominal: States: no symptoms reported Genitourinary: States: no symptoms reported Musculoskeletal: States: no symptoms reported Skin: States: no symptoms reported Neurological: States: no symptoms reported Endocrine: States: no symptoms reported All other Systems: Reviewed and Negative, No Change from Baseline Past Medical History (General) - Patient Medical History Hx Seizures: No Hx Stroke: No Hx Dementia: No Hx Asthma: Yes - as a kid Hx of COPD: No Hx Cardiac Disorders: Yes Hx Congestive Heart Failure: No Hx Pacemaker: No Hx Hypertension: Yes Hx Thyroid Disease: No Hx Diabetes: No Hx Gastroesophageal Reflux: No Hx Renal Disease: No Hx Cancer: No Hx of HIV: No Hx Hepatitis C: No Hx MRSA: Yes Hx Other PMH: Yes - MELLY-not wearing his cpap at hs MRSA Source:: Wound Surgical History: other - hernia repair,cardiac stent/cath;cardiac ablation - Vaccination History Hx Tetanus, Diphtheria Vaccination: No Hx Influenza Vaccination: No Hx Pneumococcal Vaccination: No - Social History Hx Tobacco Use: Yes Hx Alcohol Use: No Hx Substance Use: Yes - Marijuana Hx Substance Use Treatment: No Hx Depression: Yes Hx Physical Abuse: No Hx Emotional Abuse: No Hx Suspected Abuse: No - Female History Patient : No Family Medical History - Family History Mother Family History: Unknown Hx Family Hypertension: Yes Hx Cardiac Disease: Yes - Father states he was diagnosed with first MN at 37 y/o Physical Exam - Physical Exam General Appearance: Alert, Comfortable, No apparent distress Eyes, Ears, Nose, Throat Exam: normal ENT inspection Neck: non-tender, full range of motion, supple Respiratory: lungs clear, normal breath sounds Cardiovascular/Chest: normal peripheral pulses, regular rate, rhythm, no gallop , no murmur Peripheral Pulses: radial,right: 2+, radial,left: 2+ Gastrointestinal/Abdominal: non tender, soft, no organomegaly Extremity: no pedal edema, no calf tenderness Neurologic: alert, oriented x 3, abnormal gait Skin Exam: warm/dry Progress - Progress Progress: 12/19/17 09:10 Vital Signs - 8 hr 12/19/17 12/19/17 08:57 09:02 Temperature 98.6 F Pulse Rate [ 69 Brachial] Respiratory 22 Rate Blood Pressure 100/74 [Right Arm] O2 Sat by Pulse 92 L 92 L Oximetry - Results/Orders Results/Orders: 12/19/17 08:54 IV Care:Saline Lock per Protoc QSHIFT Telemetry .ONCE Sodium Chloride 0.9% (Flush) [Saline Flush Syringe] 10 ml IV PRN PRN EKG Stat Pulse Ox Stat Laboratory Results - last 24 hr 12/19/17 12/19/17 09:00 11:39 WBC 12.0 H RBC 5.63 Hgb 17.2 Hct 52.4 H MCV 93.1 MCH 30.5 MCHC 32.7 L RDW 13.6 Plt Count 298 MPV 7.7 Absolute Neuts (auto) 9.20 H Absolute Lymphs (auto) 1.70 Absolute Monos (auto) 0.70 Absolute Eos (auto) 0.30 Absolute Basos (auto) 0.00 Neutrophils % 77.3 Lymphocytes % 14.0 L Monocytes % 5.5 Eosinophils % 2.9 Basophils % 0.3 PT 10.5 INR 1.05 PTT (SP) 28.0 Sodium 136 Potassium 4.7 Chloride 98 L Carbon Dioxide 32 H Anion Gap 10.7 L BUN 20 H Creatinine 1.68 H BUN/Creatinine Ratio 11.9 Random Glucose 140 H Serum Osmolality 276.9 Calcium 9.1 Magnesium 1.8 Total Bilirubin 0.6 Direct Bilirubin < 0.1 Indirect Bilirubin 0.5 AST 27 ALT 33 Alkaline Phosphatase 34 L Creatine Kinase 59 CK-MB (CK-2) 3.0 CK-MB (CK-2) % Not Reportable Troponin I 0.03 0.04 B-Natriuretic Peptide 203.0 H* Serum Total Protein 7.9 Albumin 4.1 - EKG/XRAY/CT EKG: Sinus, nonspecific ST T wave Chg Comments: HR-71 Departure - Departure Clinical Impression: Renal insufficiency Chest pain Qualifiers: Chest pain type: chest pain due to myocardial ischemia Ischemic chest pain type : unspecified angina pectoris type Qualified Code(s): I20.9 - Angina pectoris, unspecified Time of Disposition: 13:04 Disposition: Admit Patient Condition: Fair Departure Forms: Patient Portal Self Enrollment Referrals: Stephen Loaiza MD [Primary Care Provider] - 1-2 Weeks Home Medications: Ambulatory Orders Allopurinol [Zyloprim] 200 mg PO BID 09/21/12 Fluoxetine HCl [Prozac] 40 mg PO DAILY 09/21/12 [place] Carbonate [[place] Carbonate ER] 300 mg PO BID 09/21/12 HYDROcodone 7.5MG/APAP 325MG [[place] 7.5/325] 1 ea PO Q6H 09/04/14 Aspirin [Baby Aspirin] 81 mg PO QD #60 tab 12/16/14 Testosterone Cypionate 200 mg IM .[id number] 07/06/16 Carvedilol [Coreg] 3.125 mg PO DAILY 09/14/17 Celecoxib [Celebrex] 400 mg PO DAILY 09/14/17 Hydrochlorothiazide 12.5 mg PO DAILY 09/14/17 Lisinopril 20 mg PO DAILY 09/14/17 Pravastatin Sodium 40 mg PO DAILY 09/14/17 Ticagrelor [Brilinta] 90 mg PO BID 09/14/17 Apixaban [Eliquis] 5 mg PO BID 12/19/17 Famotidine 40 mg PO DAILY 12/19/17 Nitroglycerin 0.4 mg Tab [Nitrostat] 1 tablet SL Q5MIN 12/19/17 Ondansetron [Zofran Odt] 4 mg PO Q4H PRN 12/19/17 Propranolol HCl [Inderal] 40 mg PO DAILY 12/19/17 Decision To Admit - Decistion To Admit Decision to Admit Reason: Admit from ER Decision to Admit Date: 12/19/17 - D/W David Jenkins-ANP/Hospitalist Decision to Admit Time: 13:02
[2017-12-19] MEDS ORDERED: ASPIRIN (CHEWABLE) 81 MG TAB PO ONE ×2 (09:03→13:35)
--- NOTE | 2017-12-19 09:27 | RAD ---
EXAM DESCRIPTION: Chest,1 View CLINICAL HISTORY: 47 years Male, pain COMPARISON: September 29, 2017 TECHNIQUE: Portable AP view FINDINGS: Cardiac silhouette and mediastinum are unchanged considering differences in technique. No infiltrates have developed. No pleural effusions. Intact bony thorax. IMPRESSION: No infiltrates Electronically signed by: Jaylan Hsu 12/19/2017 9:26 AM CDT
[2017-12-19] MEDS ORDERED: SODIUM CHLORIDE 0.9% 1000ML 1,000 ML IVS ONE (10:10)
--- NOTE | 2017-12-19 13:02 | HP ---
SUPERVISING PHYSICIAN: Bakari Guy M.D. CHIEF COMPLAINT: Chest pain. HISTORY OF PRESENT ILLNESS: Mr. Roy is a 47 year-old male patient who notes that he started having chest pains after he had gone out to get the mail and was walking up stairs. He noted that the pain was more of a heaviness or chest pressure. He did become diaphoretic but denied any shortness of breath, nausea or vomiting. He took 1 Nitro and an aspirin at which point his pain resolved. He was brought to the Emergency Room by his father. He does have a history of recently within the last year having coronary artery stents to the RCA and LAD. He also in the last month had an ablation procedure by Dr. Stoddard for tachycardic rhythms. He was noted apparently to be in atrial fibrillation and was started on Eliquis. He does have a history of smoking approximately a pack a day for well over 26 years but quit in October of 2017, but currently uses a vapor system. In the Emergency Room, his initial cardiac workup showed that his troponin was at 0.03, an additional 3 hours later it was at 0.04. BNP is slightly elevated at 203. He also had a slightly elevated BUN and creatinine with creatinine being at 1.68. He also has a history of bipolar disorder for which he is taking [place] and notes that in the last several years he had not been taking his [place] as he was instructed. In fact, he was missing several doses at any given time, but within the last several months actually he has been very strict in taking his regimen of [place] but has not had a [place] level checked apparently in a long period of time. His chest x-ray showed no acute findings per radiology interpretation. His initial 12-lead EKG in the Emergency Department showed a normal sinus rhythm with nonspecific ST-T wave changes which compared to previous is unchanged from September of 2017. In the E. R., he was given another aspirin 325 mg, some fluids and now is going to be placed in Observation status for continued further evaluation of cardiac troponins and cardiac telemetry to further rule out an acute myocardial infarction. He was placed in Observation in stable condition. PAST MEDICAL HISTORY: 1. Coronary artery heart disease status post PTCA and stent to the RCA and LAD in 2016. 2. Ablation for atrial fibrillation/atrial flutter in November 2017. 3. Hypertension. 4. Previous myocardial infarction in 2017. 5. Obstructive sleep apnea for which he uses a CPAP. 6. Rheumatoid arthritis. 7. Degenerative disc disease. 8. Peripheral neuropathy. 9. Benign prostatic hypertrophy. 10. Erectile dysfunction. 11. Testosterone deficiency. 12. Bipolar disorder for which he takes [place]. PAST SURGICAL HISTORY: 1. Umbilical hernia repair. 2. Percutaneous transluminal coronary angioplasty with stents times 2 in RCA and LAD. 3. Knee surgery as a child. CURRENT MEDICATIONS: 1. Hydrocodone 7.5 mg 1 every 6 hours as needed for pain. 2. Prozac 40 mg daily. 3. Testosterone 200 mg IM every 10 days. 4. Aspirin 81 mg daily. 5. Coreg 12.5 mg b.i.d. 6. Allopurinol 200 mg b.i.d. 7. [place] 600 mg b.i.d. 8. Lisinopril 20 mg daily. 9. Propranolol 40 mg b.i.d. 10. Nitro tablet 0.4 mg as needed every 5 minutes. 11. Zofran ODT 4 mg every 4 hours as needed. 12. Famotidine 40 mg daily. 13. Eliquis 5 mg b.i.d. ALLERGIES: RIZATRIPTAN AND SUMATRIPTAN OR IMITREX AND MAXALT. FAMILY HISTORY: Father has a history of coronary artery disease, hypertension and lupus. Mother has Sjogren's and lupus. He has 1 brother who has hepatitis C. SOCIAL HISTORY: The patient is disabled and lives in [place]. He does smoke approximately a pack and a half a day and has done for over 26 years. Drinks a rare alcoholic beverage, typically beer and does not use any illicit drugs. REVIEW OF SYSTEMS: No fevers or chills. He has had a weight loss intentionally of 10 pounds but gained it back within the last month. No general malaise. HEENT: No headaches, vision changes, ear pains, nasal congestion or sore throat. RESPIRATORY: Denies any shortness of breath, coughing, wheezing, hemoptysis, pleuritic chest pains. CARDIOVASCULAR: As noted in History of Present Illness, chest pains. Denies any palpitations. No peripheral edema. GASTROINTESTINAL: No nausea, vomiting, diarrhea or constipation or abdominal pains. GENITOURINARY: He denies any dysuria but notes some polyuria and nocturia. ENDOCRINE: Notes that he has had some polydipsia and polyuria. MUSCULOSKELETAL: Chronic back pain. HEMATOLOGIC: Denies any easy bruising or transfusion reaction and is currently on Eliquis. PSYCHIATRIC: Has a history of bipolar disease. No homicidal or suicidal ideations. Currently on [place]. NEUROLOGIC: No dizziness, paresthesias, syncopal episodes, ataxia or seizure activity. PHYSICAL EXAMINATION: VITAL SIGNS: Blood pressure 125/83, respirations 16, satting 92% on nasal cannula at rest at 2 liters with temperature 98.5, pulse 67. Admission weight is 151.5 kg. GENERAL: The patient on admission to the Medical/Surgical floor appeared to be comfortable in no acute distress. Alert and oriented with no reported pains. HEENT: Tympanic membranes are clear bilaterally. Oropharynx is pink and moist without any lesions. NECK: Supple, non-tender with full range of motion. No jugular venous distention. CHEST: Lungs were clear to auscultation bilaterally without any rhonchi, wheezing or rales. CARDIOVASCULAR: Tones were distant but without any murmurs, gallops, or rubs. ABDOMEN: Obese but soft, non-tender. Positive bowel sounds. EXTREMITIES: No clubbing, cyanosis or edema. NEUROLOGIC: He is alert and oriented times three. LABORATORY: White count shows a leukocytosis of 12,00 with hemoglobin 17.2, hematocrit 52.4, platelet count 298,000. Differential shows to be without a left shift currently. Coagulation studies show a normal PT and PTT. Chemistries show normal electrolytes with slightly elevated carbon dioxide at 32 , but potassium 4.7, BUN 20, creatinine 1.68, calcium 9.1, magnesium normal at 1.8. Liver functions all within normal limits. CK was 59, troponin initially was 0.03 and then 3 hours post initial was 0.04. BNP was slightly elevated at 203. Urinalysis was pending. [place] level is pending. Hemoglobin A1c is pending. RADIOLOGY: Chest x-ray per radiology interpretation showed no infiltrates. No pleural effusions. Cardiac silhouette and mediastinum are unchanged. EKG showed sinus rhythm with nonspecific ST-T wave changes but no acute changes compared to EKG from September of 2017. ASSESSMENT: 1. Chest pain, rule out for acute myocardial infarction. 2. History of coronary artery disease with percutaneous transluminal coronary angioplasty and stent placement in right coronary artery and left anterior descending artery in 2017. 3. Renal insufficiency with a prerenal azotemic state from mild dehydration. 4. Hypertension. 5. Obstructive sleep apnea using CPAP. 6. Chronic tobacco abuse. 7. Rheumatoid arthritis. 8. Degenerative disc disease. 9. Peripheral neuropathies. 10. Benign prostatic hypertrophy. 11. Bipolar disorder currently on [place]. PLAN: The patient will be placed in Observation for further cardiac telemetry and serial monitoring of his cardiac enzymes. Will continue with cardiac telemetry. Will resume his home medications, including his Eliquis once those have been updated and verified. I have ordered a [place] level which is pending and probably will not be ready until at least tomorrow or Thursday. He will be on cardiac diet. Will plan to repeat labs accordingly including troponins. Will anticipate his length of stay to be at least 1 to 2 days. Prior to discharge certainly will need to have him ambulate to ensure that his chest pains do not recur with any exertional effort. He is somewhat dry with a renal insufficiency, therefore will give him some IV fluids and watch his I's and O's closely. Once clinically stable, certainly will be discharged to have close clinical followup with his primary care provider, Dr. Loaiza, and followup with Dr. Stoddard, his driftman. Should he show any changes in EKG or return of chest pains, certainly will address and consider further management with cardiology consultation. Until then, will continue to monitor and treat appropriately. #[id number] [facility]
[2017-12-19] MEDS ORDERED: ACETAMINOPHEN 325 MG TAB PO PRN (13:35)
[2017-12-19] MEDS ORDERED: MORPHINE SULFATE INJ 10 MG/ML VIAL IV PRN (13:35)
[2017-12-19] MEDS ORDERED: NITROGLYCERIN 0.4 MG 25 EA TAB SL PRN (13:35)
[2017-12-19] MEDS ORDERED: KCL 20MEQ/0.45% NS 1,000 ML IVS PRN (13:44)
[2017-12-19] MEDS ORDERED: IV SET AND CAP CHANGE INJ INJ SCH (14:00)
[2017-12-19] MEDS ORDERED: TESTOSTERONE CYPIONATE 200 MG IM SCH (18:45)
[2017-12-19] MEDS ORDERED: HYDROcodone 7.5MG/APAP 325MG 1 EA TAB PO SCH (19:00)
[2017-12-19] MEDS ORDERED: ASPIRIN (CHEWABLE) 81 MG TAB PO SCH (19:00)
[2017-12-19] MEDS ORDERED: ASPIRIN (ENTERIC COATED) 81 MG TAB PO ONE (19:34)
[2017-12-19] MEDS ORDERED: HYDROcodone 7.5MG/APAP 325MG 1 EA TAB ONE (19:35)
[2017-12-19] MEDS ORDERED: PANTOPRAZOLE SODIUM IV 40 MG VIAL IV SCH (20:00)
[2017-12-19] MEDS ORDERED: LITHIUM CARBONATE 150 MG CAP ONE (20:17)
[2017-12-19] MEDS ORDERED: PANTOPRAZOLE SODIUM IV 40 MG VIAL ONE (20:17)
[2017-12-19] MEDS ORDERED: ALLOPURINOL 100 MG TAB ONE (20:17)
[2017-12-19] MEDS ORDERED: APIXABAN 2.5 MG TAB PO ONE (20:17)
[2017-12-19] MEDS ORDERED: CARVEDILOL 12.5 MG TAB ONE (20:17)
[2017-12-19] MEDS ORDERED: PROPRANOLOL HCL 20 MG TAB ONE (20:17)
[2017-12-19] MEDS ORDERED: LITHIUM CARBONATE 600 MG PO SCH (21:00)
[2017-12-19] MEDS ORDERED: PROPRANOLOL HCL 20 MG TAB PO SCH (21:00)
[2017-12-19] MEDS ORDERED: ALLOPURINOL 300 MG TAB PO SCH (21:00)
[2017-12-19] MEDS ORDERED: CARVEDILOL 3.125 MG TAB PO SCH (21:00)
[2017-12-19] MEDS ORDERED: NON-FORMULARY MEDICATION 1 EA MIS (Apixaban [Eliquis] 5 MG) PO SCH (21:00)
[2017-12-19] MEDS ORDERED: SODIUM CHLORIDE 0.9% (FLUSH) 10 ML SYG IV SCH (21:00)
[2017-12-19] MEDS ORDERED: NITROGLYCERIN/D5W IV 250 ML IVS ONE (21:11)
[2017-12-19] MEDS ORDERED: SODIUM CHLORIDE 0.9% 500ML 500 ML ONE (21:17)
[2017-12-19] MEDS: SODIUM CHLORIDE 0.9% 500ML 500 ML IVS PRN ×2 (21:18→21:24)
[2017-12-19] MEDS ORDERED: NITROGLYCERIN/D5W IV 50,000 MCG in PREMIX BOTTLE 1 BOTTLE IVS SCH (21:30)
[2017-12-19 21:45] VITALS: BP 135/81; TEMP 98.7; O2SAT 96
[2017-12-20] MEDS ORDERED: FAMOTIDINE 40 MG PO SCH (09:00)
[2017-12-20] MEDS ORDERED: NON-FORMULARY MEDICATION 1 EA MIS (Lisinopril [Lisinopril] 20 MG) PO SCH (09:00)
[2017-12-20] MEDS ORDERED: ASPIRIN TABLET 325 MG TAB PO SCH (09:00)
[2017-12-20] MEDS ORDERED: FLUoxetine HCL 20 MG CAP PO SCH (09:00)
--- NOTE | 2017-12-21 09:10 | SSS ---
SUPERVISING PHYSICIAN: Bakari Guy M.D. DISCHARGE DIAGNOSIS: 1. Chest pains with ischemic changes noted in anterior leads, new findings, requiring initiation of a nitro drip and transfer for cardiac evaluation. 2. Coronary artery disease status post percutaneous transluminal coronary angioplasty and stent placement in right coronary artery and left anterior descending artery in 2017. 3. Recent ablation for atrial fibrillation and atrial flutter in November 2017. 4. Previous myocardial infarction in 2017 requiring stent placement. 5. Obstructive sleep apnea using CPAP. 6. Multiple co-morbidities including rheumatoid arthritis, degenerative disc disease, perineum, benign prostatic hypertrophy, erectile dysfunction, testosterone deficiency. CHIEF COMPLAINT: Chest pain. HISTORY OF PRESENT ILLNESS: Mr. Roy is a 47 year-old male patient who notes that he started having chest pains after he had gone out to get the mail and was walking up stairs. He noted that the pain was more of a heaviness or chest pressure. He did become diaphoretic but denied any shortness of breath, nausea or vomiting. He took 1 Nitro and an aspirin at which point his pain resolved. He was brought to the Emergency Room by his father. He does have a history of recently within the last year having coronary artery stents to the RCA and LAD. He also in the last month had an ablation procedure by Dr. Stoddard for tachycardic rhythms. He was noted apparently to be in atrial fibrillation and was started on Eliquis. He does have a history of smoking approximately a pack a day for well over 26 years but quit in October of 2017, but currently uses a vapor system. In the Emergency Room, his initial cardiac workup showed that his troponin was at 0.03, an additional 3 hours later it was at 0.04. BNP is slightly elevated at 203. He also had a slightly elevated BUN and creatinine with creatinine being at 1.68. He also has a history of bipolar disorder for which he is taking [place] and notes that in the last several years he had not been taking his [place] as he was instructed. In fact, he was missing several doses at any given time, but within the last several months actually he has been very strict in taking his regimen of [place] but has not had a [place] level checked apparently in a long period of time. His chest x-ray showed no acute findings per radiology interpretation. His initial 12-lead EKG in the Emergency Department showed a normal sinus rhythm with nonspecific ST-T wave changes which compared to previous is unchanged from September of 2017. In the E. R., he was given another aspirin 325 mg, some fluids and now is going to be placed in Observation status for continued further evaluation of cardiac troponins and cardiac telemetry to further rule out an acute myocardial infarction. He was placed in Observation in stable condition. PAST MEDICAL HISTORY: 1. Coronary artery heart disease status post PTCA and stent to the RCA and LAD in 2016. 2. Ablation for atrial fibrillation/atrial flutter in November 2017. 3. Hypertension. 4. Previous myocardial infarction in 2017. 5. Obstructive sleep apnea for which he uses a CPAP. 6. Rheumatoid arthritis. 7. Degenerative disc disease. 8. Peripheral neuropathy. 9. Benign prostatic hypertrophy. 10. Erectile dysfunction. 11. Testosterone deficiency. 12. Bipolar disorder for which he takes [place]. PAST SURGICAL HISTORY: 1. Umbilical hernia repair. 2. Percutaneous transluminal coronary angioplasty with stents times 2 in RCA and LAD. 3. Knee surgery as a child. CURRENT MEDICATIONS: 1. Hydrocodone 7.5 mg 1 every 6 hours as needed for pain. 2. Prozac 40 mg daily. 3. Testosterone 200 mg IM every 10 days. 4. Aspirin 81 mg daily. 5. Coreg 12.5 mg b.i.d. 6. Allopurinol 200 mg b.i.d. 7. [place] 600 mg b.i.d. 8. Lisinopril 20 mg daily. 9. Propranolol 40 mg b.i.d. 10. Nitro tablet 0.4 mg as needed every 5 minutes. 11. Zofran ODT 4 mg every 4 hours as needed. 12. Famotidine 40 mg daily. 13. Eliquis 5 mg b.i.d. ALLERGIES: RIZATRIPTAN AND SUMATRIPTAN OR IMITREX AND MAXALT. FAMILY HISTORY: Father has a history of coronary artery disease, hypertension and lupus. Mother has Sjgren's and lupus. He has 1 brother who has hepatitis C. SOCIAL HISTORY: The patient is disabled and lives in [place]. He does smoke approximately a pack and a half a day and has done for over 26 years. Drinks a rare alcoholic beverage, typically beer and does not use any illicit drugs. REVIEW OF SYSTEMS: No fevers or chills. He has had a weight loss intentionally of 10 pounds but gained it back within the last month. No general malaise. HEENT: No headaches, vision changes, ear pains, nasal congestion or sore throat. RESPIRATORY: Denies any shortness of breath, coughing, wheezing, hemoptysis, pleuritic chest pains. CARDIOVASCULAR: As noted in History of Present Illness, chest pains. Denies any palpitations. No peripheral edema. GASTROINTESTINAL: No nausea, vomiting, diarrhea or constipation or abdominal pains. GENITOURINARY: He denies any dysuria but notes some polyuria and nocturia. ENDOCRINE: Notes that he has had some polydipsia and polyuria. MUSCULOSKELETAL: Chronic back pain. HEMATOLOGIC: Denies any easy bruising or transfusion reaction and is currently on Eliquis. PSYCHIATRIC: Has a history of bipolar disease. No homicidal or suicidal ideations. Currently on [place]. NEUROLOGIC: No dizziness, paresthesias, syncopal episodes, ataxia or seizure activity. PHYSICAL EXAMINATION: VITAL SIGNS: Blood pressure 125/83, respirations 16, satting 92% on nasal cannula at rest at 2 liters with temperature 98.5, pulse 67. Admission weight is 151.5 kg. GENERAL: The patient on admission to the Medical/Surgical floor appeared to be comfortable in no acute distress. Alert and oriented with no reported pains. HEENT: Tympanic membranes are clear bilaterally. Oropharynx is pink and moist without any lesions. NECK: Supple, non-tender with full range of motion. No jugular venous distention. CHEST: Lungs were clear to auscultation bilaterally without any rhonchi, wheezing or rales. CARDIOVASCULAR: Tones were distant but without any murmurs, gallops, or rubs. ABDOMEN: Obese but soft, non-tender. Positive bowel sounds. EXTREMITIES: No clubbing, cyanosis or edema. NEUROLOGIC: He is alert and oriented times three. LABORATORY: White count shows a leukocytosis of 12,00 with hemoglobin 17.2, hematocrit 52.4, platelet count 298,000. Differential shows to be without a left shift currently. Coagulation studies show a normal PT and PTT. Chemistries show normal electrolytes with slightly elevated carbon dioxide at 32 , but potassium 4.7, BUN 20, creatinine 1.68, calcium 9.1, magnesium normal at 1.8. Liver functions all within normal limits. CK was 59, troponin initially was 0.03 and then 3 hours post initial was 0.04. BNP was slightly elevated at 203. Urinalysis was pending. [place] level is pending. Hemoglobin A1c is pending. Last troponin prior to discharge and transfer was 0.04. RADIOLOGY: Chest x-ray per radiology interpretation showed no infiltrates. No pleural effusions. Cardiac silhouette and mediastinum are unchanged. EKG showed sinus rhythm with nonspecific ST-T wave changes but no acute changes compared to EKG from September of 2017. Second EKG prior to transfer showed a change with T-wave inversion in anterior leads in V4 and V5 compared to previous EKG on admission. ASSESSMENT: 1. Chest pain, rule out for acute myocardial infarction. 2. History of coronary artery disease with percutaneous transluminal coronary angioplasty and stent placement in right coronary artery and left anterior descending artery in 2017. 3. Renal insufficiency with a prerenal azotemic state from mild dehydration. 4. Hypertension. 5. Obstructive sleep apnea using CPAP. 6. Chronic tobacco abuse. 7. Rheumatoid arthritis. 8. Degenerative disc disease. 9. Peripheral neuropathies. 10. Benign prostatic hypertrophy. 11. Bipolar disorder currently on [place]. HOSPITAL COURSE: Mr. Roy was placed in Observation for further cardiac telemetry monitoring. He was without any chest pains initially, but around 6: 30 he again complained of severe chest pains and had some diaphoresis which lasted for approximately 5 minutes which resolved with a single nitro. He did remain hemodynamically stable, however, given the patient's past medical history , current cardiovascular risk factors and previous heart attacks, I did contact [facility] for transfer for further evaluation by cardiology. I talked with Dr. Silva who accepted the patient in transfer and requested that we start the patient on a low dose nitro drip and gave him a 500 bolus of saline at 200 an hour prior to discharge and transfer. The patient was stable with his blood pressure at discharge 135/81, saturation 96% on nasal cannula, temperature 98.7, respirations 22. He was to be transferred by ground ambulance. PLAN: The patient will be placed in Observation for further cardiac telemetry and serial monitoring of his cardiac enzymes. Will continue with cardiac telemetry. Will resume his home medications, including his Eliquis once those have been updated and verified. I have ordered a [place] level which is pending and probably will not be ready until at least tomorrow or Thursday. He will be on cardiac diet. Will plan to repeat labs accordingly including troponins. Will anticipate his length of stay to be at least 1 to 2 days. Prior to discharge certainly will need to have him ambulate to ensure that his chest pains do not recur with any exertional effort. He is somewhat dry with a renal insufficiency, therefore will give him some IV fluids and watch his I's and O's closely. Once clinically stable, certainly will be discharged to have close clinical followup with his primary care provider, Dr. Loaiza, and followup with Dr. Stoddard, his semi driver. Should he show any changes in EKG or return of chest pains, certainly will address and consider further management with cardiology consultation. Until then, will continue to monitor and treat appropriately. ADDENDUM: As noted in Hospital Course. DISPOSITION: The patient was transferred to [facility] for higher level of care not available at [facility] included cardiology for concerns for an acute myocardial infarction with the patient being stable at time of discharge. The patient was transferred via ground ambulance. Condition at transfer was stable, but guarded. #[id number] [facility]
== END 2017-12-19 21:35 | disposition short-term general hospital (02) ==
LOC: ER 08:46 → MS 13:01
PROVIDERS: ADMIT Nurse Practitioner Family; ATTEND Nurse Practitioner Family
DX: I25.119 Atherosclerotic heart disease of native coronary artery with unspecified angina pectoris (principal); R94.31 Abnormal electrocardiogram [ECG] [EKG]; I48.91 Unspecified atrial fibrillation; I10 Essential (primary) hypertension; G47.33 Obstructive sleep apnea (adult) (pediatric); M06.9 Rheumatoid arthritis, unspecified; N40.0 Benign prostatic hyperplasia without lower urinary tract symptoms; N52.9 Male erectile dysfunction, unspecified; F17.210 Nicotine dependence, cigarettes, uncomplicated; F31.9 Bipolar disorder, unspecified; G62.9 Polyneuropathy, unspecified; I25.2 Old myocardial infarction; Z95.5 Presence of coronary angioplasty implant and graft; Z79.01 Long term (current) use of anticoagulants; Z79.82 Long term (current) use of aspirin; Z79.891 Long term (current) use of opiate analgesic; Z79.899 Other long term (current) drug therapy; Z88.8 Allergy status to other drugs, medicaments and biological substances; Z82.49 Family history of ischemic heart disease and other diseases of the circulatory system
CPT/HCPCS: J7040; J7030; J3480; 82553 ×2; 83036; 36415; 82550 ×2; 80048; 85025; 85730; 85610; 84484 ×3; 80076; 80178; 83880; 71045; 94760; 93005 ×2; G0378

== ENCOUNTER 2018-07-23 19:42 | Emergency (ER) | payer MEDICARE, MEDICAID ==
[2018-07-23 20:03] VITALS: TEMP 98
--- NOTE | 2018-07-23 20:18 | ED.PDOC ---
History of Present Illness - General Chief Complaint: Blood Pressure Problem Stated Complaint: high B/P x's 2 days, CP this AM Time Seen by Provider: 07/23/18 19:56 Source: patient Exam Limitations: no limitations - History of Present Illness Initial Comments: HE IS HERE BECAUSE HIS BP IS ELEVATED. HE HAS HTN AND CAD, HAS TWO STENTS. HAS ALSO BEEN HAVING CHEST PAIN 3/10 AND NAUSEA. HE SAYS THAT HE TAKES LISINOPRIL/HCTZ20/12.5 AND COREG 12.5 BID AND TAKES HIS MEDICATIONS ON A DAILY BASIS. HE REPORTS BEING VERY THIRSTY AND HAS NEVER BEEN DIAGNOSED WITH DIABETES MELLITUS. Timing/Duration: days - THREE DAYS Severity: moderate Location: substernal Activities at Onset: none Prior Chest Pain/Cardiac Workup: cardiac cath, other - HAS TWO STENTS Improving Factors: nothing Worsening Factors: nothing Associated Symptoms: cough, nausea/vomiting Allergies/Adverse Reactions: Allergies Rizatriptan [From Maxalt] Allergy (Verified 07/23/18 20:10) Sumatriptan [From Imitrex] Allergy (Verified 07/23/18 20:10) Home Medications: Ambulatory Orders Allopurinol [Zyloprim] 200 mg PO BID 09/21/12 Fluoxetine HCl [Prozac] 40 mg PO DAILY 09/21/12 Austwell Carbonate [Austwell Carbonate ER] 600 mg PO BID 09/21/12 HYDROcodone 7.5MG/APAP 325MG [Aledo 7.5/325] 1 ea PO Q6H 09/04/14 Aspirin [Baby Aspirin] 81 mg PO QD #60 tab 12/16/14 Testosterone Cypionate 200 mg IM .[id number] 07/06/16 Carvedilol [Coreg] 12.5 mg PO BID 09/14/17 Lisinopril 20 mg PO DAILY 09/14/17 Apixaban [Eliquis] 5 mg PO BID 12/19/17 Famotidine 40 mg PO DAILY 12/19/17 Nitroglycerin 0.4 mg Tab [Nitrostat] 1 tablet SL Q5MIN 12/19/17 Nitroglycerin/D5w IV 50,000 mcg IVS PRN bttl 12/19/17 Ondansetron [Zofran Odt] 4 mg PO Q4H PRN 12/19/17 Propranolol HCl [Inderal] 40 mg PO BID 06/16/18 Sodium Chloride 0.9% 500Ml [NS 500ml] 500 ml IVS .QD PRN #1 bag 12/19/17 Review of Systems - Review of Systems Constitutional: States: no symptoms reported EENTM: States: no symptoms reported Respiratory: States: no symptoms reported Cardiology: States: chest pain Gastrointestinal/Abdominal: States: no symptoms reported Genitourinary: States: no symptoms reported Musculoskeletal: States: no symptoms reported Skin: States: no symptoms reported Neurological: States: no symptoms reported Endocrine: States: no symptoms reported Hematologic/Lymphatic: States: no symptoms reported Past Medical History (General) - Patient Medical History Hx Seizures: No Hx Stroke: No Hx Dementia: No Hx Asthma: Yes - as a kid Hx of COPD: No Hx Cardiac Disorders: Yes - AL x's 2 Hx Congestive Heart Failure: No Hx Pacemaker: No Hx Hypertension: Yes Hx Thyroid Disease: No Hx Diabetes: No Hx Gastroesophageal Reflux: No Hx Renal Disease: No Hx Cancer: No Hx of HIV: No Hx Hepatitis C: No Hx MRSA: Yes MRSA Source:: Wound Other Surgeries:: HAS BIPOLAR DISEASE - Vaccination History Hx Tetanus, Diphtheria Vaccination: No Hx Influenza Vaccination: No Hx Pneumococcal Vaccination: No - Social History Hx Tobacco Use: No Hx Chewing Tobacco Use: No Hx Alcohol Use: No Hx Substance Use: Yes - Marijuana Hx Substance Use Treatment: No Hx Depression: Yes Hx Physical Abuse: No Hx Emotional Abuse: No Hx Suspected Abuse: No - Female History Patient : No Family Medical History - Family History Mother Family History: Unknown Hx Family Hypertension: Yes Hx Cardiac Disease: Yes - Father states he was diagnosed with first AL at 36 y/o Physical Exam - Physical Exam General Appearance: Alert, No apparent distress Eyes, Ears, Nose, Throat Exam: PERRL/EOMI, normal ENT inspection Neck: non-tender, full range of motion, supple, normal inspection Respiratory: chest non-tender, lungs clear, normal breath sounds, no respiratory distress, no accessory muscle use Cardiovascular/Chest: normal peripheral pulses, regular rate, rhythm, no edema, no gallop, no murmur Peripheral Pulses: radial,right: 2+, radial,left: 2+ Gastrointestinal/Abdominal: normal bowel sounds, non tender, soft, no organomegaly, no pulsatile mass Rectal Exam: deferred Extremity: no pedal edema Neurologic: no motor/sensory deficits, oriented x 3 Skin Exam: normal color Lymphatic: no adenopathy Progress - Progress Progress: 07/23/18 21:34 BP IS IMPROVED AFTER CLONIDINE 0.2. 160.104. THE PLAN IS TO DOUBLE THE LORI NOPRIL TO 40 MG DAILY. THE PATIENT HAS AN APPOINTMENT ON THURSDAY WITH DR. PALMA. HE SHOULD RETURN IF CONDITION WORSENS. - Results/Orders Results/Orders: EKG: HR OF 79, PA INTERVAL OF 170, QRS OF 86, QTC OF 447, AXES: 105 DEGREES. IMPRESSION: SINUS RHYTHM, NO ACUTE INJURY PATTERN. 07/23/18 20:15 EKG STAT 07/23/18 21:06 LITHIUM Routine Laboratory Results WBC 8.7 K/mm3 (4.8-10.8) 07/23/18 20:47 RBC 5.51 M/mm3 (4.70-6.10) 07/23/18 20:47 Hgb 16.1 gm/dL (14.0-18.0) 07/23/18 20:47 Hct 49.5 % (42.0-52.0) 07/23/18 20:47 MCV 89.7 fl (80.0-94.0) 07/23/18 20:47 MCH 29.2 pg (27.0-31.0) 07/23/18 20:47 MCHC 32.6 g/dL (33.0-37.0) L 07/23/18 20:47 RDW 15.3 % (11.5-14.5) H 07/23/18 20:47 Plt Count 238 K/mm3 (130-400) 07/23/18 20:47 MPV 7.7 fl (7.40-10.4) 07/23/18 20:47 Absolute Neuts (auto) 6.40 K/uL (1.8-6.8) 07/23/18 20:47 Absolute Lymphs (auto) 1.40 K/uL (1.0-3.4) 07/23/18 20:47 Absolute Monos (auto) 0.50 K/uL (0.2-0.8) 07/23/18 20:47 Absolute Eos (auto) 0.30 K/uL (0.0-0.4) 07/23/18 20:47 Absolute Basos (auto) 0.10 K/uL (0.0-0.1) 07/23/18 20:47 Neutrophils % 73.5 % (42.0-78.0) 07/23/18 20:47 Lymphocytes % 16.3 % (20.0-50.0) L 07/23/18 20:47 Monocytes % 6.2 % (2.0-9.0) 07/23/18 20:47 Eosinophils % 3.3 % (1.0-5.0) 07/23/18 20:47 Basophils % 0.7 % (0.0-2.0) 07/23/18 20:47 Sodium 133 mmol/L (135-145) L 07/23/18 20:47 Potassium 3.8 mmol/L (3.6-5.0) 07/23/18 20:47 Chloride 97 mmol/L (101-111) L 07/23/18 20:47 Carbon Dioxide 29 mmol/L (21-31) 07/23/18 20:47 Anion Gap 10.8 (12-18) L 07/23/18 20:47 BUN 9 mg/dL (7-18) 07/23/18 20:47 Creatinine 0.84 mg/dL (0.6-1.3) 07/23/18 20:47 BUN/Creatinine Ratio 10.7 (10-20) 07/23/18 20:47 Random Glucose 111 mg/dL (70-105) H 07/23/18 20:47 Serum Osmolality 265.8 mOsm/L (275-295) L 07/23/18 20:47 Calcium 8.6 mg/dL (8.4-10.2) 07/23/18 20:47 Total Bilirubin 0.5 mg/dL (0.2-1.0) 07/23/18 20:47 AST 26 IU/L (10-42) 07/23/18 20:47 ALT 27 IU/L (10-60) 07/23/18 20:47 Alkaline Phosphatase 35 IU/L (42-121) L 07/23/18 20:47 Troponin I 0.03 ng/mL (0.01-0.05) 07/23/18 20:47 B-Natriuretic Peptide 13.8 pg/ml (0-100) 07/23/18 20:47 Serum Total Protein 7.4 gm/dL (6.4-8.2) 07/23/18 20:47 Albumin 3.5 g/dl (3.2-5.5) 07/23/18 20:47 Globulin 3.9 gm/dL (2.3-3.5) H 07/23/18 20:47 Albumin/Globulin Ratio 0.9 (1.1-1.9) L 07/23/18 20:47 Departure - Departure Clinical Impression: Hypertension Qualifiers: Hypertension type: essential hypertension Qualified Code(s): I10 - Essential (primary) hypertension CAD (coronary artery disease) Qualifiers: Coronary Disease-Associated Artery/Lesion type: [place] artery [place] vs. transplanted heart: [place] heart Associated angina: with stable angina Qualified Code(s): I25.118 - Atherosclerotic heart disease of [place] coronary artery with other forms of angina pectoris Time of Disposition: 21:36 Disposition: Discharge to Home or Self Care Condition: Good Departure Forms: ED Discharge - Pt. Copy, Patient Portal Self Enrollment Instructions: DI for High Blood Pressure Referrals: Stephen Loaiza MD [Primary Care Provider] - 1-2 Weeks Home Medications: Ambulatory Orders Allopurinol [Zyloprim] 200 mg PO BID 09/21/12 Fluoxetine HCl [Prozac] 40 mg PO DAILY 09/21/12 Austwell Carbonate [Austwell Carbonate ER] 600 mg PO BID 09/21/12 HYDROcodone 7.5MG/APAP 325MG [[place] 7.5/325] 1 ea PO Q6H 09/04/14 Aspirin [Baby Aspirin] 81 mg PO QD #60 tab 12/16/14 Testosterone Cypionate 200 mg IM .[id number] 07/06/16 Carvedilol [Coreg] 12.5 mg PO BID 09/14/17 Lisinopril 20 mg PO DAILY 09/14/17 Apixaban [Eliquis] 5 mg PO BID 12/19/17 Famotidine 40 mg PO DAILY 12/19/17 Nitroglycerin 0.4 mg Tab [Nitrostat] 1 tablet SL Q5MIN 12/19/17 Nitroglycerin/D5w IV 50,000 mcg IVS PRN bttl 12/19/17 Ondansetron [Zofran Odt] 4 mg PO Q4H PRN 12/19/17 Propranolol HCl [Inderal] 40 mg PO BID 12/19/17 Sodium Chloride 0.9% 500Ml [NS 500ml] 500 ml IVS .QD PRN #1 bag 12/19/17 Additional Instructions: INCREASE LISINOPRIL TO 40 MG DAILY CONTINUE CARDEDILOL 12.5 MG BID KEEP APPT. WITH DR. PALMA ON THURSDAY THE BP WILL TAKE 7-10 DAYS TO SEE THE EFFECT OF THE EXTRA LISINOPRIL
[2018-07-23] MEDS ORDERED: LABETALOL INJ 5 MG/ML VIAL IV ONE (20:22)
--- NOTE | 2018-07-23 20:45 | RAD ---
EXAM DESCRIPTION: Chest,1 View CLINICAL HISTORY: 47 years Male, CHEST PAIN COMPARISON: Chest x-ray December 19, 2017 FINDINGS: No consolidation. No pneumothorax. No significant pleural effusion. Cardiomediastinal silhouette is unremarkable. Osseous structures are unremarkable. IMPRESSION: No acute findings. Electronically signed by: Jaime Salas MD 07/23/2018 8:44 PM PERINATAL TECHNICIAN
[2018-07-23] MEDS ORDERED: cloNIDine HCL 0.1 MG TAB ONE (20:46)
[2018-07-23] MEDS ORDERED: cloNIDine HCL 0.1 MG TAB PO ONE (20:50)
[2018-07-23 21:03] VITALS: O2SAT 93
[2018-07-23 21:52] VITALS: BP 146/97
== END 2018-07-23 21:52 | disposition home or self-care (01) ==
LOC: ER 19:42
DX: I10 Essential (primary) hypertension (principal); I25.118 Atherosclerotic heart disease of native coronary artery with other forms of angina pectoris; F31.9 Bipolar disorder, unspecified; I25.2 Old myocardial infarction; Z79.82 Long term (current) use of aspirin; Z79.899 Other long term (current) drug therapy; Z88.8 Allergy status to other drugs, medicaments and biological substances; Z95.5 Presence of coronary angioplasty implant and graft

== ENCOUNTER → 2018-10-18 | Outpatient (CLI) | payer MEDICARE, MEDICAID | LOC: GMAM 14:43 | PROVIDERS: ATTEND Family Medicine | DX: R80.9 Proteinuria, unspecified (principal) ==

== ENCOUNTER → 2018-10-27 | Outpatient (CLI) | payer MEDICARE, MEDICAID ==
--- NOTE | 2018-10-27 15:08 | US ---
EXAM DESCRIPTION: Renal CLINICAL HISTORY: 48 years Male, chronic kidney disease COMPARISON: None. TECHNIQUE: Retroperitoneal sonogram was performed to evaluate the kidneys and bladder. FINDINGS: Right kidney Right renal length is 10.4 cm. Renal cortical thickness and echogenicity are normal. No right renal mass, cyst or shadowing stone. No hydronephrosis. Left kidney Left renal length is 11.1 cm. Renal cortical thickness and echogenicity are normal. No left renal mass, cyst or shadowing stone. No hydronephrosis. Urinary bladder Bladder wall thickness is normal for degree of distention. No bladder mass. IMPRESSION: Normal sonographic appearance of the kidneys. Unremarkable appearance of the urinary bladder. Electronically signed by: Pool Weber MD 10/27/2018 3:05 PM CDT
== END ==
LOC: RAD 12:17
PROVIDERS: ATTEND Internal Medicine Nephrology
DX: N18.4 Chronic kidney disease, stage 4 (severe) (principal)

== ENCOUNTER 2018-12-26 07:34 | Emergency (ER) | payer OTHER, MEDICAID ==
[2018-12-26] MEDS ORDERED: NITROGLYCERIN 0.4 MG 25 EA TAB SL ONE (07:39)
[2018-12-26] MEDS ORDERED: ASPIRIN TABLET 325 MG TAB ONE (07:39)
[2018-12-26] MEDS ORDERED: ASPIRIN TABLET 325 MG TAB PO ONE ×2 (07:51→07:52)
[2018-12-26] MEDS ORDERED: MORPHINE SULFATE INJ 10 MG/ML VIAL IV ONE (07:52)
[2018-12-26] MEDS: NITROGLYCERIN 0.4 MG 25 EA TAB SL ONE ×2 (07:55→08:00)
[2018-12-26] MEDS ORDERED: HYDROcodone 10MG/APAP 325MG 1 EA TAB PO ONE (08:12)
--- NOTE | 2018-12-26 08:47 | RAD ---
EXAM: XR Chest, 1 View CLINICAL HISTORY: 48 years old and is Male; chest discomfort TECHNIQUE: Frontal view of the chest. COMPARISON: No relevant prior studies available. FINDINGS: Limitations: None. Lungs: Unremarkable. No consolidation. Pleural space: Unremarkable. No pneumothorax. Heart: Mild cardiomegaly noted. Mediastinum: Unremarkable. Bones/joints: Unremarkable. IMPRESSION: No acute findings. Electronically signed by: Suyapa Newell MD 12/26/2018 8:45 AM CDT
--- NOTE | 2018-12-26 11:59 | ED.PDOC ---
History of Present Illness - General Chief Complaint: Chest Pain/MA Stated Complaint: Chest pain and SOB Time Seen by Provider: 12/26/18 07:42 Source: patient, family Exam Limitations: no limitations - History of Present Illness Initial Comments: the patient is a 48-year-old male presenting to the emergency room secondary to some left lateral and upper chest discomfort and left arm pain that started last night around 2 AM and started getting more significant this morning around 6 in the morning. He does have a significant cardiac history. He has had stents placed. He does take pradaxa. the patient does have significant tenderness throughout the before meals joint. Range of motion is preserved. He does have some anterior chest wall tenderness. He is diaphoretic. The patient ran out of his hydrocodone 3 days ago and prior to that he was taking 4 times dailyfor several years. No vomiting. No syncope. No shortness of breath. he has had 3 tablets of nitroglycerin which have not really helped the chest discomfort. The hydrocodone and morphine did. Timing/Duration: 4-6 hours Severity: moderate Improving Factors: medication Worsening Factors: nothing Associated Symptoms: chest pain, diaphoresis Allergies/Adverse Reactions: Allergies Rizatriptan [From Maxalt] Allergy (Verified 07/23/18 20:10) Sumatriptan [From Imitrex] Allergy (Verified 07/23/18 20:10) Home Medications: Ambulatory Orders Allopurinol [Zyloprim] 200 mg PO BID 09/21/12 Fluoxetine HCl [Prozac] 20 mg PO DAILY 09/21/12 Metaline Carbonate [Metaline Carbonate ER] 600 mg PO BID 09/21/12 HYDROcodone 7.5MG/APAP 325MG [[place] 7.5/325] 1 ea PO Q6H 09/04/14 Aspirin [Baby Aspirin] 81 mg PO QD #60 tab 12/16/14 Testosterone Cypionate 200 mg IM .[id number] 07/06/16 Carvedilol [Coreg] 12.5 mg PO BID 09/14/17 Lisinopril 20 mg PO DAILY 09/14/17 Famotidine 40 mg PO DAILY 12/19/17 Nitroglycerin 0.4 mg Tab [Nitrostat] 1 tablet SL Q5MIN 12/19/17 Pravastatin Sodium 40 mg PO DAILY 12/26/18 Tramadol HCl 50 mg PO Q8HR PRN #20 tab 12/26/18 Review of Systems - Review of Systems Constitutional: States: no symptoms reported EENTM: States: no symptoms reported Respiratory: States: no symptoms reported Cardiology: States: chest pain Gastrointestinal/Abdominal: States: no symptoms reported Genitourinary: States: no symptoms reported Musculoskeletal: States: see HPI Skin: States: no symptoms reported Neurological: States: no symptoms reported Endocrine: States: no symptoms reported All other Systems: No Change from Baseline Past Medical History (General) - Patient Medical History Hx Seizures: No Hx Stroke: No Hx Dementia: No Hx Asthma: Yes Hx of COPD: No Hx Cardiac Disorders: Yes - [place] 2017 Hx Congestive Heart Failure: No Hx Pacemaker: No Hx Hypertension: Yes Hx Thyroid Disease: No Hx Diabetes: Yes Hx Gastroesophageal Reflux: No Hx Renal Disease: No Hx Cancer: Yes - Skin Hx of HIV: No Hx Hepatitis C: No Hx MRSA: Yes MRSA Source:: Wound - Vaccination History Hx Tetanus, Diphtheria Vaccination: Yes Hx Influenza Vaccination: Yes Hx Pneumococcal Vaccination: Yes - Social History Hx Tobacco Use: Yes Hx Chewing Tobacco Use: No Hx Alcohol Use: Yes Hx Substance Use: No Hx Substance Use Treatment: No Hx Depression: Yes - Bipolar Hx Physical Abuse: No Hx Emotional Abuse: No Hx Suspected Abuse: No - Female History Patient is a Female of Child Bearing Age (10 -59 yrs old): No Patient : No Family Medical History - Family History Mother Family History: Unknown Hx Family Hypertension: Yes Hx Cardiac Disease: Yes - Father states he was diagnosed with first MA at 36 y/o Physical Exam - Physical Exam General Appearance: Alert, Obvious distress - he is diaphoretic Eye Exam: bilateral normal Ears, Nose, Throat: hearing grossly normal, normal ENT inspection Neck: full range of motion, supple Respiratory: lungs clear, normal breath sounds, no respiratory distress, no accessory muscle use Cardiovascular/Chest: normal peripheral pulses, regular rate, rhythm, no edema Peripheral Pulses: radial,right: 2+, radial,left: 2+, dorsalis pedis,right: 2+, dorsalis pedis,left: 2+ Gastrointestinal/Abdominal: soft - morbidly obese Rectal Exam: deferred Back Exam: no CVA tenderness, no vertebral tenderness Extremity: non-tender, normal inspection, no pedal edema, normal capillary refill 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, alert, oriented x 3, other - anxious Skin Exam: other - diaphoretic Comments: Vital Signs - 24 hr 12/26/18 12/26/18 12/26/18 07:35 08:35 09:01 Temperature 98.9 F Pulse Rate [R 75 66 72 finger] Respiratory 20 16 18 Rate Blood Pressure 164/88 128/86 129/86 [R arm] O2 Sat by Pulse 97 95 92 L Oximetry 12/26/18 10:00 Temperature Pulse Rate [R 65 finger] Respiratory 20 Rate Blood Pressure 121/72 [R arm] O2 Sat by Pulse 95 Oximetry Laboratory Tests 12/26/18 12/26/18 08:04 11:15 WBC 10.0 RBC 5.13 Hgb 16.2 Hct 47.3 MCV 92.2 MCH 31.6 H MCHC 34.3 RDW 13.7 Plt Count 293 MPV 7.6 Absolute Neuts (auto) 7.20 H Absolute Lymphs (auto) 1.90 Absolute Monos (auto) 0.60 Absolute Eos (auto) 0.40 Absolute Basos (auto) 0.10 Neutrophils % 71.6 Lymphocytes % 18.7 L Monocytes % 5.6 Eosinophils % 3.5 Basophils % 0.6 PT 9.4 INR 0.94 PTT (SP) 25.6 Sodium 138 Potassium 3.9 Chloride 103 Carbon Dioxide 25 Anion Gap 13.9 BUN 11 Creatinine 0.99 BUN/Creatinine Ratio 11.1 Random Glucose 108 H Serum Osmolality 275.6 Calcium 9.3 Magnesium 2.0 Creatine Kinase 70 65 CK-MB (CK-2) 2.1 1.9 CK-MB (CK-2) % Not Reportable Not Reportable Troponin I < 0.02 < 0.02 B-Natriuretic Peptide 16.0 chest x-ray shows no acute pathology. EKG shows normal sinus rhythm. Normal axis. Normal R-wave progression. Normal QT interval. No ST segment or T-wave changes definitive for ischemia. Progress - Progress Progress: 12/26/18 12:02 the patient's a 48-year-old male presenting to the emergency room secondary to left upper chest pain and left arm pain. He does have a cardiac history. Initial cardiac enzymes and repeat 3 hours later are within normal limits. EKG is within normal limits. Chest x-ray is within normal limits. The patient's pain did not improve with nitroglycerin but did improve with a dose of morphine and hydrocodone. He is feeling fine at this time. I believe the symptoms are most likely from hydrocodone withdrawal. He does need to talk to his primary care doctor about getting another prescription. For now he will be written for some tramadol to at least help prevent some of the withdrawal symptoms. He does have some arthritis in his left acromioclavicular joint. This is likely making some of his arm pain worse. He does have a significant cardiac history and there is the possibility that some of the symptoms may be from a cardiac origin. He does understand this. He has been offered admission for further monitoring and a longer rule out. He has deferred that at this time. He does understand the risks. He does need follow-up with his primary care doctor as soon as possible. ER warnings were given. Departure - Departure Clinical Impression: Opiate withdrawal Chest pain Qualifiers: Chest pain type: unspecified Qualified Code(s): R07.9 - Chest pain, unspecified Acromioclavicular joint arthritis Qualifiers: Laterality: left Qualified Code(s): M19.012 - Primary osteoarthritis, left shoulder Disposition: Discharge to Home or Self Care Condition: Fair Departure Forms: ED Discharge - Pt. Copy, Patient Portal Self Enrollment Diet: low fat, low cholesterol Activity: increase activity as tolerated Referrals: Stephen Loaiza MD [Primary Care Provider] - 1-2 Weeks Prescriptions: Tramadol HCl 50 mg PO Q8HR PRN #20 tab PRN Reason: Moderate Pain Home Medications: Ambulatory Orders Allopurinol [Zyloprim] 200 mg PO BID 09/21/12 Fluoxetine HCl [Prozac] 20 mg PO DAILY 09/21/12 Metaline Carbonate [Metaline Carbonate ER] 600 mg PO BID 09/21/12 HYDROcodone 7.5MG/APAP 325MG [[place] 7.5/325] 1 ea PO Q6H 09/04/14 Aspirin [Baby Aspirin] 81 mg PO QD #60 tab 12/16/14 Testosterone Cypionate 200 mg IM .[id number] 07/06/16 Carvedilol [Coreg] 12.5 mg PO BID 09/14/17 Lisinopril 20 mg PO DAILY 09/14/17 Famotidine 40 mg PO DAILY 12/19/17 Nitroglycerin 0.4 mg Tab [Nitrostat] 1 tablet SL Q5MIN 12/19/17 Pravastatin Sodium 40 mg PO DAILY 12/26/18 Tramadol HCl 50 mg PO Q8HR PRN #20 tab 12/26/18 Additional Instructions: the patient's a 48-year-old male presenting to the emergency room secondary to left upper chest pain and left arm pain. He does have a cardiac history. Initial cardiac enzymes and repeat 3 hours later are within normal limits. EKG is within normal limits. Chest x-ray is within normal limits. The patient's pain did not improve with nitroglycerin but did improve with a dose of morphine and hydrocodone. He is feeling fine at this time. I believe the symptoms are most likely from hydrocodone withdrawal. He does need to talk to his primary care doctor about getting another prescription. For now he will be written for some tramadol to at least help prevent some of the withdrawal symptoms. He does have some arthritis in his left acromioclavicular joint. This is likely making some of his arm pain worse. He does have a significant cardiac history and there is the possibility that some of the symptoms may be from a cardiac origin. He does understand this. He has been offered admission for further monitoring and a longer rule out. He has deferred that at this time. He does understand the risks. He does need follow-up with his primary care doctor as soon as possible. ER warnings were given.
[2018-12-26 12:18] VITALS: BP 115/68; O2SAT 96
[2018-12-26 12:24] VITALS: TEMP 97.4
== END 2018-12-26 12:25 | disposition home or self-care (01) ==
LOC: ER 07:34
DX: R07.9 Chest pain, unspecified (principal); F11.23 Opioid dependence with withdrawal; M19.012 Primary osteoarthritis, left shoulder; E11.9 Type 2 diabetes mellitus without complications; F31.9 Bipolar disorder, unspecified; J45.909 Unspecified asthma, uncomplicated; I25.2 Old myocardial infarction; I10 Essential (primary) hypertension; Z85.828 Personal history of other malignant neoplasm of skin; Z79.899 Other long term (current) drug therapy; Z79.82 Long term (current) use of aspirin; Z88.8 Allergy status to other drugs, medicaments and biological substances; Z95.5 Presence of coronary angioplasty implant and graft; Z79.01 Long term (current) use of anticoagulants; Z87.891 Personal history of nicotine dependence
CPT/HCPCS: 36415; 71045; 80048; 82550; 82553; 83880; 84484; 85025; 85610; 85730; 93005; J2270

== ENCOUNTER → 2019-02-11 | Outpatient (CLI) | payer OTHER, MEDICAID | LOC: GMATM 10:35 | PROVIDERS: ATTEND Nurse Practitioner Family | DX: D53.9 Nutritional anemia, unspecified (principal); E11.42 Type 2 diabetes mellitus with diabetic polyneuropathy; R35.1 Nocturia; L03.221 Cellulitis of neck ==

== ENCOUNTER → 2019-03-21 | Outpatient (CLI) | payer OTHER, MEDICAID | LOC: GMAM 16:59 | PROVIDERS: ATTEND Family Medicine | DX: R10.9 Unspecified abdominal pain (principal); Z79.899 Other long term (current) drug therapy ==

== ENCOUNTER → 2019-03-25 | Outpatient (CLI) | payer OTHER, MEDICAID ==
--- NOTE | 2019-03-25 09:04 | CT ---
EXAM DESCRIPTION: Abdoment/Pelvis w/o Contrast CLINICAL HISTORY: 48 years, Male, ABD PAIN COMPARISON: Previous CT abdomen and pelvis August 25, 2017 TECHNIQUE: CT of the abdomen and pelvis is performed according to our non contrast protocol. FINDINGS: The lung bases are clear. Moderate coronary calcification. Low density liver consistent with diffuse hepatic steatosis. Liver, spleen, and pancreas are otherwise unremarkable. Adrenal glands appear normal. The right kidney contains a punctate 1 mm calculus which is nonobstructive. No right ureteral stone.. The left kidney is unremarkable. No left renal stones or hydronephrosis. Small bowel loops appear normal in caliber with normal wall thickness. There is no lymphadenopathy, inflammation, or free fluid observed. In the pelvis, the appendix is normal. No inflammation around the cecum or terminal ileum or sigmoid colon. No stones in the distal ureters or bladder. Rectal wall thickness is normal for degree of distention. No free fluid or mass in the pelvis. Prostate appears normal in size with coarse internal calcification. No inguinal or lower pelvic adenopathy. Coronal and sagittal reformatted images confirm the findings. IMPRESSION: Calculus 1 mm in the right kidney without obstructive uropathy. Hepatic steatosis. This exam was performed according to our departmental dose-optimization program, which includes automated exposure control, adjustment of the mA and/or kV according to patient size and/or use of iterative reconstruction technique. Total DLP equals 1513.79 mGycm. Electronically signed by: Pool Weber MD 03/25/2019 9:03 AM CDT
== END ==
LOC: CT 08:00
PROVIDERS: ATTEND Family Medicine
DX: N20.0 Calculus of kidney (principal); K76.0 Fatty (change of) liver, not elsewhere classified

== ENCOUNTER → 2019-07-15 | Outpatient (CLI) | payer OTHER, MEDICAID | LOC: GMAM 12:11 | PROVIDERS: ATTEND Family Medicine | DX: M06.9 Rheumatoid arthritis, unspecified (principal); I10 Essential (primary) hypertension; E11.9 Type 2 diabetes mellitus without complications; E78.2 Mixed hyperlipidemia ==

== ENCOUNTER → 2019-07-20 | Outpatient (CLI) | payer OTHER, MEDICAID | LOC: GMAM 13:48 | PROVIDERS: ATTEND Family Medicine | DX: E29.1 Testicular hypofunction (principal); M10.9 Gout, unspecified ==

== ENCOUNTER 2019-09-14 16:49 | Emergency (ER) | payer OTHER, MEDICAID ==
[2019-09-14] MEDS ORDERED: ASPIRIN TABLET 325 MG TAB PO ONE (16:55)
[2019-09-14] MEDS ORDERED: SODIUM CHLORIDE 0.9% (FLUSH) 10 ML SYG IV PRN (16:55)
[2019-09-14] MEDS ORDERED: ONDANSETRON INJ 4 MG/2 ML VIAL IV ONE (16:57)
[2019-09-14] MEDS ORDERED: ALUM & MAG HYDROX-SIMETHICONE 30 ML, LIDOCAINE VISCOUS 2% 15 ML PO ONE ×2 (16:57)
--- NOTE | 2019-09-14 17:02 | ED.PDOC ---
History of Present Illness - General Chief Complaint: Chest Pain/[place] Time Seen by Provider: 09/14/19 16:50 Source: patient Exam Limitations: no limitations - History of Present Illness Initial Comments: 48-year-old male presents to the emergency department complaining of nausea, vomiting and diarrhea and chest pain. He reports that the nausea and vomiting started yesterday and the chest pain is been going on throughout the day today. The pain seems to be worse after vomiting. He denies any black or bloody stools. He has not had any cough, congestion or fever. He did have a family member that was recently diagnosed with the flu. Symptoms are currently rated/10 in severity and nothing he does seems to make the symptoms significantly better or worse. Allergies/Adverse Reactions: Allergies Rizatriptan [From Maxalt] Allergy (Verified 07/23/18 20:10) Sumatriptan [From Imitrex] Allergy (Verified 07/23/18 20:10) Home Medications: Ambulatory Orders Allopurinol [Zyloprim] 200 mg PO BID 09/21/12 Fluoxetine HCl [Prozac] 20 mg PO DAILY 09/21/12 [place] Carbonate [[place] Carbonate ER] 600 mg PO BID 09/21/12 HYDROcodone 7.5MG/APAP 325MG [[place] 7.5/325] 1 ea PO Q6H 09/04/14 Aspirin [Baby Aspirin] 81 mg PO QD #60 tab 12/16/14 Testosterone Cypionate 200 mg IM .[id number] 07/06/16 Carvedilol [Coreg] 12.5 mg PO BID 09/14/17 Lisinopril 20 mg PO DAILY 09/14/17 Famotidine 40 mg PO DAILY 12/19/17 Nitroglycerin 0.4 mg Tab [Nitrostat] 1 tablet SL Q5MIN 12/19/17 Pravastatin Sodium 40 mg PO DAILY 12/26/18 Tramadol HCl 50 mg PO Q8HR PRN #20 tab 12/26/18 Review of Systems - Review of Systems Constitutional: Denies: chills EENTM: Denies: nose congestion, throat pain Respiratory: States: short of breath. Denies: cough Cardiology: States: chest pain. Denies: palpitations Gastrointestinal/Abdominal: States: abdominal pain, diarrhea, nausea, vomiting Genitourinary: Denies: dysuria, hematuria Musculoskeletal: Denies: joint pain, muscle pain Skin: Denies: lesions, rash Neurological: Denies: headache, paresthesia, weakness Past Medical History (General) - Patient Medical History Hx Seizures: No Hx Stroke: No Hx Dementia: No Hx Asthma: Yes Hx of COPD: No Hx Cardiac Disorders: Yes - [place] 2017 Hx Congestive Heart Failure: No Hx Pacemaker: No Hx Hypertension: Yes Hx Thyroid Disease: No Hx Diabetes: Yes Hx Gastroesophageal Reflux: No Hx Renal Disease: No Hx Cancer: Yes - Skin Hx of HIV: No Hx Hepatitis C: No Hx MRSA: Yes MRSA Source:: Wound - Vaccination History Hx Tetanus, Diphtheria Vaccination: Yes Hx Influenza Vaccination: Yes Hx Pneumococcal Vaccination: Yes - Social History Hx Tobacco Use: Yes Hx Chewing Tobacco Use: No Hx Alcohol Use: Yes Hx Substance Use: No Hx Substance Use Treatment: No Hx Depression: Yes - Bipolar Hx Physical Abuse: No Hx Emotional Abuse: No Hx Suspected Abuse: No - Female History Patient : No Family Medical History - Family History Mother Family History: Unknown Hx Family Hypertension: Yes Hx Cardiac Disease: Yes - Father states he was diagnosed with first [place] at 36 y/o Physical Exam - Physical Exam General Appearance: Alert, Other - Obese Eye Exam: bilateral normal Ears, Nose, Throat: normal ENT inspection, normal pharynx Neck: full range of motion, normal inspection Respiratory: lungs clear, normal breath sounds, no respiratory distress, no accessory muscle use Cardiovascular/Chest: normal peripheral pulses, regular rate, rhythm, no murmur Peripheral Pulses: radial,right: 2+, radial,left: 2+, dorsalis pedis,right: 2+, dorsalis pedis,left: 2+ Gastrointestinal/Abdominal: distended, tenderness - diffuse Neurologic: no motor/sensory deficits, alert, normal mood/affect, oriented x 3, other - Normal gait Skin Exam: normal color, warm/dry Comments: Vital Signs - 24 hr 09/14/19 09/14/19 16:50 17:50 Temperature 97.5 F L 98.5 F Pulse Rate [ 108 H 112 H left brachial] Respiratory 24 20 Rate Blood Pressure 136/66 144/108 [left brachial] O2 Sat by Pulse 88 L 92 L Oximetry Progress - Progress Progress: 09/14/19 17:16 I discussed the patient's EKG findings with him and he says that he does have a history of atrial fibrillation in the past but has had an ablation for it so he is not normally in it. 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 09/14/19 19:20 Patient recheck: The patient states that his abdominal pain is significantly improved. Repeat abdominal exam patient with right-sided mid and lower abdomina l tenderness. We discussed CT findings and plan for surgical consultation. We also discussed plan for discussion of treatment of his A. fib with his carpet tile layer or whoever is on-call for them. At this time we are also repeating his troponin and awaiting those results. 09/14/19 19:30 I spoke with the carpet tile layer on-call for Dr. Stoddard regarding the patient's presentation, lab and imaging findings as well as his [id number] score of 3 and he recommends starting the patient on heparin for anticoagulation and transfer to the ER at [facility] so that he can be evaluated by his carpet tile layer tomorrow and have consults with surgery while there. I discussed this plan with the patient and he has voiced understanding and agreed. 09/14/19 19:[address] Saenz on-call for general surgery at [facility] and she agrees to consult on the patient as needed. Dr. Rodriguez the emergency physician at [facility] will accept patient in transfer. - Results/Orders Results/Orders: 09/14/19 16:55 IV Care:Saline Lock per Protoc QSHIFT Telemetry .ONCE Sodium Chloride 0.9% (Flush) [Saline Flush Syringe] 10 ml IV PRN PRN EKG Stat Pulse Ox Stat 09/14/19 17:13 Sodium Chloride 0.9% 1000ML [Ns 1000 ml] 1,000 ml IVS .QD 09/14/19 17:56 Hold Metformin x 48Hrs [id number] 09/14/19 19:45 Heparin Premix [Heparin/D5w 25,000U/500ML] 25,000 units Premix Bag 1 bag IVS PRN Laboratory Results - last 24 hr 09/14/19 09/14/19 09/14/19 17:13 17:13 19:10 WBC 11.5 H RBC 6.12 H Hgb 19.0 H Hct 55.3 H MCV 90.4 MCH 31.1 H MCHC 34.4 RDW 14.1 Plt Count 327 MPV 7.4 Absolute Neuts (auto) 8.70 H Absolute Lymphs (auto) 2.00 Absolute Monos (auto) 0.50 Absolute Eos (auto) 0.20 Absolute Basos (auto) 0.10 Neutrophils % 75.4 Lymphocytes % 17.6 L Monocytes % 4.4 Eosinophils % 2.1 Basophils % 0.5 PT 10.6 INR 1.07 PTT (SP) 23.6 D-Dimer, Quantitative 354 Sodium 137 Potassium 4.1 Chloride 98 L Carbon Dioxide 27 Anion Gap 16.1 BUN 18 Creatinine 1.08 BUN/Creatinine Ratio 16.7 Random Glucose 137 H Serum Osmolality 277.9 Calcium 10.1 Magnesium 1.9 Creatine Kinase 141 CK-MB (CK-2) 5.3 H* CK-MB (CK-2) % Not Reportable Troponin I < 0.02 < 0.02 B-Natriuretic Peptide 16.3 Influenza A and B negative. 1703: Atrial fibrillation with RVR rate 109. Normal axis. No ST elevation and nonspecific ST-T changes. CXR: IMPRESSION: No acute process is identified in the chest. Electronically signed by: Pool Weber MD 09/14/2019 5:[address] Abd/Pelvis: IMPRESSION: 1. Prominent appendix measuring up to 12.7 mm raising concern for early changes of acute appendicitis. Suggest surgical evaluation. 2. No other acute process is identified. 3. Fatty liver. 4. Stable fat-containing mass in the right adrenal gland consistent with a benign adenoma or myolipoma. Electronically signed by: Lev Richey MD 09/14/2019 6:43 PM CDT Departure - Departure Clinical Impression: Vomiting and diarrhea, Abnormal CT of the abdomen, ENLARGED APPENDIX Atrial fibrillation Qualifiers: Atrial fibrillation type: unspecified Qualified Code(s): I48.91 - Unspecified atrial fibrillation Time of Disposition: 19:51 Disposition: Transfer to Hospital Condition: Fair Referrals: Stephen Loaiza MD [Primary Care Provider] - 1-2 Weeks Home Medications: Ambulatory Orders Allopurinol [Zyloprim] 200 mg PO BID 09/21/12 Fluoxetine HCl [Prozac] 20 mg PO DAILY 09/21/12 [place] Carbonate [[place] Carbonate ER] 600 mg PO BID 09/21/12 HYDROcodone 7.5MG/APAP 325MG [[place] 7.5/325] 1 ea PO Q6H 09/04/14 Aspirin [Baby Aspirin] 81 mg PO QD #60 tab 12/16/14 Testosterone Cypionate 200 mg IM .[id number] 07/06/16 Carvedilol [Coreg] 12.5 mg PO BID 09/14/17 Lisinopril 20 mg PO DAILY 09/14/17 Famotidine 40 mg PO DAILY 12/19/17 Nitroglycerin 0.4 mg Tab [Nitrostat] 1 tablet SL Q5MIN 12/19/17 Pravastatin Sodium 40 mg PO DAILY 12/26/18 Tramadol HCl 50 mg PO Q8HR PRN #20 tab 12/26/18 Transfer to Outside Facility - Transfer Information Decision to Transfer Date: 09/14/19 Decision to Transfer Time: 19:39 Reason for Transfer: required specialist not available Accepting Provider:: Dr. Rodriguez Accepting Facility: [facility]
--- NOTE | 2019-09-14 17:25 | RAD ---
EXAM DESCRIPTION: Chest,1 View CLINICAL HISTORY: 48 years Male, CP COMPARISON: Previous study December 26, 2018 TECHNIQUE: AP portable chest. FINDINGS: Heart size is prominent with normal pulmonary vascularity. No consolidating infiltrate. No pulmonary mass or worrisome nodule. No pneumothorax or pleural effusion. Bones are unremarkable. IMPRESSION: No acute process is identified in the chest. Electronically signed by: Pool Weber MD 09/14/2019 5:23 PM CDT
[2019-09-14] MEDS ORDERED: ALUM & MAG HYDROX-SIMETHICONE 30 ML UD ONE (17:33)
[2019-09-14] MEDS ORDERED: LIDOCAINE HCL 2% (MOUTH-THROAT) 15 ML UD ONE (17:33)
[2019-09-14] MEDS: SODIUM CHLORIDE 0.9% 1000ML 1,000 ML IVS PRN ×2 (17:41→19:22)
[2019-09-14] MEDS ORDERED: SODIUM CHLORIDE 0.9% 1000ML 1,000 ML IVS ONE (17:42)
--- NOTE | 2019-09-14 18:45 | CT ---
EXAM: Abdomen/Pelvis w/Contrast CLINICAL INDICATION: Abdominal pain. COMPARISON: 03/25/2019 TECHNIQUE: The CT scan was done using contiguous axial 5 mm postcontrast sections through the abdomen and pelvis including IV contrast. This exam was performed according to our departmental dose-optimization program, which includes automated exposure control, adjustment of the mA and/or kV according to patient size and/or use of iterative reconstruction technique. FINDINGS: The visualized lung bases are clear. There is mild fatty change in the liver without any focal hepatic abnormality. The liver and gallbladder otherwise are unremarkable. The kidneys and left adrenal gland are unremarkable. There is a fat-containing mass in the right adrenal gland consistent with a myelolipoma or adenoma measuring 2.4 x 1.7 cm. The pancreas and spleen are unremarkable. The aorta is normal in caliber. The appendix appears enlarged especially the tip of the appendix which measures up to 12.7 mm in diameter. On the previous study in the same area it measured 8.8 mm. There is no periappendiceal inflammation. There are no dilated loops of small bowel. There is no free air, free fluid, or abscess. IMPRESSION: 1. Prominent appendix measuring up to 12.7 mm raising concern for early changes of acute appendicitis. Suggest surgical evaluation. 2. No other acute process is identified. 3. Fatty liver. 4. Stable fat-containing mass in the right adrenal gland consistent with a benign adenoma or myolipoma. Electronically signed by: Lev Richey MD 09/14/2019 6:43 PM CDT
[2019-09-14] MEDS ORDERED: HEPARIN PREMIX 25,000 UNITS in PREMIX BAG 1 BAG IVS SCH (19:45)
[2019-09-14 19:56] VITALS: TEMP 98.9
[2019-09-14] MEDS ORDERED: HEPARIN PREMIX 500 ML ONE (20:02)
[2019-09-14 20:26] VITALS: BP 133/103; O2SAT 94
== END 2019-09-14 20:46 | disposition short-term general hospital (02) ==
LOC: ER 16:49
DX: I48.91 Unspecified atrial fibrillation (principal); R11.2 Nausea with vomiting, unspecified; R19.7 Diarrhea, unspecified; R93.5 Abnormal findings on diagnostic imaging of other abdominal regions, including retroperitoneum; R00.0 Tachycardia, unspecified; I25.2 Old myocardial infarction; J45.909 Unspecified asthma, uncomplicated; E11.9 Type 2 diabetes mellitus without complications; I10 Essential (primary) hypertension; F31.9 Bipolar disorder, unspecified; Z85.828 Personal history of other malignant neoplasm of skin; Z79.899 Other long term (current) drug therapy; Z79.82 Long term (current) use of aspirin; Z88.8 Allergy status to other drugs, medicaments and biological substances; Z87.891 Personal history of nicotine dependence
CPT/HCPCS: 36415; 71045; 74177; 80048; 82550; 82553; 83880; 84484; 85025; 85379; 85610; 85730; 87502; 93005; J1644; J2405; J7030

== ENCOUNTER → 2019-09-27 | Outpatient (CLI) | payer OTHER, MEDICAID | LOC: LAB.O 09:08 | PROVIDERS: ATTEND Family Medicine | DX: M06.9 Rheumatoid arthritis, unspecified (principal); I10 Essential (primary) hypertension; A41.9 Sepsis, unspecified organism ==

== ENCOUNTER 2019-11-29 20:14 | Emergency (ER) | payer OTHER, MEDICAID ==
[2019-11-29] MEDS ORDERED: SODIUM CHLORIDE 0.9% (FLUSH) 10 ML SYG IV PRN (20:30)
--- NOTE | 2019-11-29 20:38 | ED.PDOC ---
History of Present Illness - General Chief Complaint: Respiratory Problem Stated Complaint: short of breath Time Seen by Provider: 11/29/19 20:30 Source: patient Additional Information: The patient is a 49 year old male with PMH significant for HTN, DM, HLD, CAD, AF s/p ablation who presents to the ED with worsening shortness of breath. He states that he has been having trouble for over a month now, states that he fi glenn got tired of it and wanted to come to the Emergency Department. He complains of shortness of breath that is worse at night time, he wakes gasping for air and has had very poor sleep over the past few nights. He does have a history of MELLY and typically wears a CPAP but has been having some trouble with this lately. He states that he will "rip it off" in the night time and he wakes to find it on the floor. He has been trying to schedule another sleep study but has been having difficulty with this due to insurance changes. He states that he is also short of breath with exertion and complains of lower extremity edema. He denies cough, fever, and known sick contacts. He is a former smoker with 26 pack year history of smoking. No other complaints at this time. - History of Present Illness Allergies/Adverse Reactions: Allergies Rizatriptan [From Maxalt] Allergy (Verified 10/11/19 07:02) Sumatriptan [From Imitrex] Allergy (Verified 10/11/19 07:02) Home Medications: Ambulatory Orders Allopurinol [Zyloprim] 100 mg PO BID 09/21/12 Fluoxetine HCl [Prozac] 20 mg PO DAILY 09/21/12 [place] Carbonate [N[place] Carbonate ER] 300 mg PO BID 09/21/12 HYDROcodone 7.5MG/APAP 325MG [[place] 7.5/325] 1 ea PO TID 09/04/14 Testosterone Cypionate 200 mg IM .[id number] 07/06/16 Carvedilol [Coreg] 12.5 mg PO DAILY 09/14/17 Lisinopril 20 mg PO DAILY 09/14/17 Nitroglycerin 0.4 mg Tab [Nitrostat] 1 tablet SL Q5MIN 12/19/17 Pravastatin Sodium 40 mg PO DAILY 12/26/18 Amlodipine Besylate 5 mg PO DAILY 10/11/19 Atorvastatin Calcium [Lipitor] 10 mg PO DAILY 10/11/19 Hydroxychloroquine Sulfate [Plaquenil] 200 mg PO DAILY 10/11/19 Icosapent Ethyl [Vascepa] 1 gm PO BID 10/11/19 Lisinopril & Hydrochlorothiazi [Lisinopril/Hydrochlorothi 10-12.5 mg] 1 tab PO DAILY 10/11/19 Prasugrel HCl [Prasugrel] 10 mg DAILY 10/11/19 Propranolol HCl [Propranolol Hydrochloride] 10 mg PO DAILY 10/11/19 Semaglutide [Ozempic] 2 mg SC DAILY 10/11/19 Albuterol Inhaler [Ventolin Hfa Inhaler] 1 puff INH Q4HR #1 inh 11/29/19 Furosemide [Lasix] 20 mg PO DAILY #14 tab 11/29/19 Review of Systems - Review of Systems Constitutional: States: malaise EENTM: States: no symptoms reported Respiratory: States: short of breath, wheezing. Denies: orthopnea Cardiology: States: edema. Denies: chest pain, palpitations Gastrointestinal/Abdominal: States: no symptoms reported Genitourinary: States: no symptoms reported Musculoskeletal: States: joint swelling, muscle pain Skin: States: no symptoms reported Neurological: States: no symptoms reported Endocrine: States: no symptoms reported Hematologic/Lymphatic: States: no symptoms reported All other Systems: No Change from Baseline Past Medical History (General) - Patient Medical History Hx Seizures: No Hx Stroke: No Hx Dementia: No Hx Asthma: No Hx of COPD: No Hx Cardiac Disorders: Yes - [place] X 2 Stints X 2 Hx Congestive Heart Failure: No Hx Pacemaker: No Hx Hypertension: Yes Hx Thyroid Disease: No Hx Diabetes: Yes Hx Gastroesophageal Reflux: No Hx Renal Disease: No Hx Cancer: Yes - Skin Hx of HIV: No Hx Hepatitis C: No Hx MRSA: Yes MRSA Source:: Wound Surgical History: angioplasty, other - Vaccination History Hx Tetanus, Diphtheria Vaccination: Yes Hx Influenza Vaccination: No Hx Pneumococcal Vaccination: No - Social History Hx Tobacco Use: Yes Hx Chewing Tobacco Use: No Hx Alcohol Use: No Hx Substance Use: No Hx Substance Use Treatment: No Hx Depression: No Feels Threatened In Home Enviroment: No Feels Threatened In a Relationship: No Hx Physical Abuse: No Hx Emotional Abuse: No Hx Suspected Abuse: No - Female History Patient : No Family Medical History - Family History Mother Family History: Unknown Living Status: Unknown Hx Family Hypertension: Yes Hx Cardiac Disease: Yes - Father states he was diagnosed with first MA at 36 y/o Physical Exam - Physical Exam General Appearance: Anxious, No apparent distress, Obese Eyes, Ears, Nose, Throat Exam: normal ENT inspection Neck: non-tender, full range of motion, normal inspection Respiratory: lungs clear, wheezing - scattered expiratory wheezing bilaterally Cardiovascular/Chest: normal peripheral pulses, irregularly irregular Gastrointestinal/Abdominal: non tender, soft Extremity: normal range of motion, normal inspection, pedal edema - pitting edema bilaterally Neurologic: no motor/sensory deficits, alert, normal mood/affect, oriented x 3 Skin Exam: normal color, warm/dry Progress - Progress Progress: 11/29/19 22:29 Patient reassessed. He is feeling better after albuterol treatment, wheezing has improved. He has been ambulatory around the Emergency Department without difficulty. There is no evidence for acute coronary syndrome, pulmonary embolism, pneumonia or CHF. His labs are otherwise unremarkable. He does have moderate peripheral edema, will give low-dose diuretic. He is unsure if he is currently taking anti-coagulant. He was recently seen by his electronic calibration technician. He will follow up with week to discuss anticoagulation and he will follow up for repeat sleep study and CPAP. Home care instructions and return indications reviewed. 11/29/19 22:36 - Results/Orders Results/Orders: 11/29/19 20:30 Sodium Chloride 0.9% (Flush) [Saline Flush Syringe] 10 ml IV PRN PRN 11/29/19 20:31 IV Care:Saline Lock per Protoc QSHIFT Telemetry .ONCE 11/29/19 20:45 EKG STAT 11/30/19 09:00 Pulse Ox Daily Laboratory Results - last 24 hr 11/29/19 11/29/19 11/29/19 20:40 20:40 20:40 WBC 8.8 RBC 4.82 Hgb 15.5 Hct 45.7 MCV 94.9 H MCH 32.2 H MCHC 34.0 RDW 15.0 H Plt Count 212 MPV 7.7 Absolute Neuts (auto) 6.50 Absolute Lymphs (auto) 1.60 Absolute Monos (auto) 0.50 Absolute Eos (auto) 0.20 Absolute Basos (auto) 0.00 Neutrophils % 73.7 Lymphocytes % 17.8 L Monocytes % 5.4 Eosinophils % 2.8 Basophils % 0.3 D-Dimer, Quantitative < 131 L Sodium 137 Potassium 4.4 Chloride 102 Carbon Dioxide 30 Anion Gap 9.4 L BUN 14 Creatinine 0.97 BUN/Creatinine Ratio 14.4 Random Glucose 174 H Serum Osmolality 278.5 Calcium 9.1 Total Bilirubin 0.5 AST 25 ALT 26 Alkaline Phosphatase 29 L Troponin I B-Natriuretic Peptide 92.2 Serum Total Protein 7.1 Albumin 3.4 Globulin 3.7 H Albumin/Globulin Ratio 0.9 L 11/29/19 20:40 WBC RBC Hgb Hct MCV MCH MCHC RDW Plt Count MPV Absolute Neuts (auto) Absolute Lymphs (auto) Absolute Monos (auto) Absolute Eos (auto) Absolute Basos (auto) Neutrophils % Lymphocytes % Monocytes % Eosinophils % Basophils % D-Dimer, Quantitative Sodium Potassium Chloride Carbon Dioxide Anion Gap BUN Creatinine BUN/Creatinine Ratio Random Glucose Serum Osmolality Calcium Total Bilirubin AST ALT Alkaline Phosphatase Troponin I < 0.02 B-Natriuretic Peptide Serum Total Protein Albumin Globulin Albumin/Globulin Ratio - EKG/XRAY/CT Comments: 2032 Atrial Fibrillation Rate 97 No STEMI XRAY: chest Xray Comments: No acute abnormality Departure - Departure Clinical Impression: Shortness of breath, Rate controlled atrial fibrillation, Peripheral edema Hypertension Qualifiers: Hypertension type: unspecified Qualified Code(s): I10 - Essential (primary) hypertension Time of Disposition: 22:33 Disposition: Discharge to Home or Self Care Condition: Fair Departure Forms: ED Discharge - Pt. Copy, Patient Portal Self Enrollment Instructions: Shortness of Breath (Dyspnea) (DC), Wheezing, Dependent Edema (DC) Diet: low salt diet Activity: increase activity as tolerated Referrals: Stephen Loaiza MD [Primary Care Provider] - 1-2 Weeks Prescriptions: Albuterol Inhaler [Ventolin Hfa Inhaler] 1 puff INH Q4HR #1 inh Furosemide [Lasix] 20 mg PO DAILY #14 tab Home Medications: Ambulatory Orders Allopurinol [Zyloprim] 100 mg PO BID 09/21/12 Fluoxetine HCl [Prozac] 20 mg PO DAILY 09/21/12 [place] Carbonate [[place] Carbonate ER] 300 mg PO BID 09/21/12 HYDROcodone 7.5MG/APAP 325MG [[place] 7.5/325] 1 ea PO TID 03/02/15 Testosterone Cypionate 200 mg IM .[id number] 07/06/16 Carvedilol [Coreg] 12.5 mg PO DAILY 09/14/17 Lisinopril 20 mg PO DAILY 09/14/17 Nitroglycerin 0.4 mg Tab [Nitrostat] 1 tablet SL Q5MIN 12/19/17 Pravastatin Sodium 40 mg PO DAILY 12/26/18 Amlodipine Besylate 5 mg PO DAILY 10/11/19 Atorvastatin Calcium [Lipitor] 10 mg PO DAILY 10/11/19 Hydroxychloroquine Sulfate [Plaquenil] 200 mg PO DAILY 10/11/19 Icosapent Ethyl [Vascepa] 1 gm PO BID 10/11/19 Lisinopril & Hydrochlorothiazi [Lisinopril/Hydrochlorothi 10-12.5 mg] 1 tab PO DAILY 10/11/19 Prasugrel HCl [Prasugrel] 10 mg DAILY 10/11/19 Propranolol HCl [Propranolol Hydrochloride] 10 mg PO DAILY 10/11/19 Semaglutide [Ozempic] 2 mg SC DAILY 10/11/19 Albuterol Inhaler [Ventolin Hfa Inhaler] 1 puff INH Q4HR #1 inh 11/29/19 Furosemide [Lasix] 20 mg PO DAILY #14 tab 11/29/19 Additional Instructions: Follow up with your electronic calibration technician at next available appointment to discuss anticoagulation.
--- NOTE | 2019-11-29 21:08 | RAD ---
EXAM DESCRIPTION: Chest,1 View CLINICAL HISTORY: 49 years Male shortness of breath COMPARISON: 09/14/2019 FINDINGS: The cardiomediastinal silhouette appears unremarkable. No consolidating infiltrates or pleural effusions. No pneumothorax. Increased density over the lower lung mojica likely reflects overlying soft tissue artifact. IMPRESSION: No acute abnormality is identified. Electronically signed by: Savannah Wang MD 11/29/2019 9:06 PM CDT
[2019-11-29] MEDS ORDERED: IPRATROPIUM/ALBUTEROL 3 ML VIAL NEB ONE (21:09)
[2019-11-29 22:25] VITALS: BP 127/82; O2SAT 97
[2019-11-29 22:42] VITALS: TEMP 97.3
== END 2019-11-29 22:41 | disposition home or self-care (01) ==
LOC: ER 20:14
DX: I48.91 Unspecified atrial fibrillation (principal); R60.9 Edema, unspecified; R06.02 Shortness of breath; I10 Essential (primary) hypertension; E11.9 Type 2 diabetes mellitus without complications; I25.10 Atherosclerotic heart disease of native coronary artery without angina pectoris; I25.2 Old myocardial infarction; Z79.01 Long term (current) use of anticoagulants; Z87.891 Personal history of nicotine dependence; Z79.899 Other long term (current) drug therapy
CPT/HCPCS: 36415; 71045; 80053; 83880; 84484; 85025; 85379; 93005; 94640; J7620

== ENCOUNTER → 2020-03-06 | Outpatient (CLI) | payer OTHER, MEDICAID | LOC: GMAM 17:03 | PROVIDERS: ATTEND Family Medicine | DX: L03.90 Cellulitis, unspecified (principal); R60.0 Localized edema ==

== ENCOUNTER → 2020-03-09 | Outpatient (CLI) | payer OTHER, MEDICAID | LOC: GMAM 11:06 | PROVIDERS: ATTEND Family Medicine | DX: M10.9 Gout, unspecified (principal); Z12.5 Encounter for screening for malignant neoplasm of prostate; E29.1 Testicular hypofunction; E11.9 Type 2 diabetes mellitus without complications; E78.2 Mixed hyperlipidemia; I10 Essential (primary) hypertension | CPT/HCPCS: 84403; 84550; G0103 ==

== ENCOUNTER 2020-04-07 21:30 | Emergency (ER) | payer OTHER, MEDICAID ==
[2020-04-07] MEDS ORDERED: SODIUM CHLORIDE 0.9% 1000ML 1,000 ML IVS ONE (21:48)
[2020-04-07] MEDS ORDERED: NITROGLYCERIN 0.4 MG 25 EA TAB SL ONE (21:48)
[2020-04-07] MEDS ORDERED: MORPHINE SULFATE INJ 10 MG/ML VIAL IV ONE (21:53)
[2020-04-07] MEDS ORDERED: ONDANSETRON INJ 4 MG/2 ML VIAL IV ONE (21:53)
--- NOTE | 2020-04-07 21:56 | ED.PDOC ---
History of Present Illness - General Chief Complaint: Chest Pain/[place] Time Seen by Provider: 04/07/20 21:47 Additional Information: Patient is a 49-year-old male who presents to the ED with chief complaint of chest pain. Pain is in patient's central chest and radiates into his left arm. He has had this pain for the past 3 to 4 days, worse this evening. He rates the pain an 8/10. Patient took a nitroglycerin at home with no relief. Patient has a history of CAD and has [address] He has a history of atrial fibrillation and indicates that in 2018 he had a cardiac ablation done and since then he believes he is not on any anticoagulation. Patient saw his pecan grower yesterday at a routine visit and discussed with him his chest pain and he indicates the pecan grower simply told him to "lose weight". I asked patient if the pecan grower mentioned anything to him about being in atrial fibrillation and the patient indicates no. Patient denies nausea, vomiting, cough, shortness of breath, fever, chills. - History of Present Illness Allergies/Adverse Reactions: Allergies Rizatriptan [From Maxalt] Allergy (Verified 10/11/19 07:02) Sumatriptan [From Imitrex] Allergy (Verified 10/11/19 07:02) Home Medications: Ambulatory Orders Allopurinol [Zyloprim] 100 mg PO BID 09/21/12 Fluoxetine HCl [Prozac] 20 mg PO DAILY 09/21/12 [place] Carbonate [[place] Carbonate ER] 300 mg PO BID 09/21/12 HYDROcodone 7.5MG/APAP 325MG [[place] 7.5/325] 1 ea PO TID 09/04/14 Testosterone Cypionate 200 mg IM .[id number] 07/06/16 Carvedilol [Coreg] 12.5 mg PO DAILY 09/14/17 Lisinopril 20 mg PO DAILY 09/14/17 Nitroglycerin 0.4 mg Tab [Nitrostat] 1 tablet SL Q5MIN 12/19/17 Pravastatin Sodium 40 mg PO DAILY 12/26/18 Amlodipine Besylate 5 mg PO DAILY 10/11/19 Atorvastatin Calcium [Lipitor] 10 mg PO DAILY 10/11/19 Hydroxychloroquine Sulfate [Plaquenil] 200 mg PO DAILY 10/11/19 Icosapent Ethyl [Vascepa] 1 gm PO BID 10/11/19 Lisinopril & Hydrochlorothiazi [Lisinopril/Hydrochlorothi 10-12.5 mg] 1 tab PO DAILY 10/11/19 Prasugrel HCl [Prasugrel] 10 mg DAILY 10/11/19 Propranolol HCl [Propranolol Hydrochloride] 10 mg PO DAILY 10/11/19 Semaglutide [Ozempic] 2 mg SC DAILY 10/11/19 Albuterol Inhaler [Ventolin Hfa Inhaler] 1 puff INH Q4HR #1 inh 11/29/19 Furosemide [Lasix] 20 mg PO DAILY #14 tab 11/29/19 Review of Systems - Review of Systems Constitutional: States: no symptoms reported. Denies: chills, fever EENTM: States: no symptoms reported Respiratory: States: no symptoms reported. Denies: cough, short of breath Cardiology: States: see HPI, chest pain, palpitations Gastrointestinal/Abdominal: States: no symptoms reported. Denies: abdominal pain, nausea, vomiting Musculoskeletal: States: no symptoms reported. Denies: muscle pain Skin: States: no symptoms reported. Denies: rash Neurological: States: no symptoms reported All other Systems: Reviewed and Negative Past Medical History (General) - Patient Medical History Hx Seizures: No Hx Stroke: No Hx Dementia: No Hx Asthma: No Hx of COPD: No Hx Cardiac Disorders: Yes - [place] X 2 Stints X 2 Hx Congestive Heart Failure: No Hx Pacemaker: No Hx Hypertension: Yes Hx Thyroid Disease: No Hx Diabetes: Yes Hx Gastroesophageal Reflux: No Hx Renal Disease: No Hx Cancer: Yes - Skin Hx of HIV: No Hx Hepatitis C: No Hx MRSA: Yes MRSA Source:: Wound - Vaccination History Hx Tetanus, Diphtheria Vaccination: Yes Hx Influenza Vaccination: No Hx Pneumococcal Vaccination: No - Social History Hx Tobacco Use: Yes Hx Chewing Tobacco Use: No Hx Alcohol Use: No Hx Substance Use: No Hx Substance Use Treatment: No Hx Depression: No Hx Physical Abuse: No Hx Emotional Abuse: No Hx Suspected Abuse: No - Female History Patient : No Family Medical History - Family History Mother Family History: Unknown Living Status: Unknown Hx Family Hypertension: Yes Hx Cardiac Disease: Yes - Father states he was diagnosed with first [place] at 36 y/o Physical Exam - Physical Exam General Appearance: Alert, Comfortable, No apparent distress, Obese Eyes, Ears, Nose, Throat Exam: normal ENT inspection Neck: supple, normal inspection Respiratory: chest non-tender, lungs clear, normal breath sounds, no respiratory distress, no accessory muscle use Cardiovascular/Chest: no edema, no gallop, no JVD, no murmur, tachycardia, irregularly irregular Peripheral Pulses: radial,right: 2+, radial,left: 2+ Gastrointestinal/Abdominal: normal bowel sounds, non tender, soft, no organomegaly, no pulsatile mass Extremity: normal range of motion, non-tender, normal inspection, no pedal edema Neurologic: no motor/sensory deficits, alert, normal mood/affect, oriented x 3 Skin Exam: normal color, warm/dry Progress - Progress Progress: 04/07/20 22:01 Differential diagnosis includes but is not limited to ACS, [place], pneumonia, atrial fibrillation. EKG: Atrial fibrillation, rate 128, normal axis, Q waves in V1 and V2, normal ST segments and T waves. Negative STEMI. 04/07/20 23:42 Patient reevaluated and is feeling much better at this time, his pain is only mild. Patient's rate has come down nicely to 101 and his pressure is stable on Cardizem. Patient's troponin is negative and his chest x-ray is clear. I believe that patient's afib with RVR is new onset since yesterday since patient's pecan grower did not make note of it in the office when seen yesterday. I suspect this atrial fibrillation is causing demand ischemia and chest pain. I discussed case with Dr. Calloway, emergency physician at [facility], who accepts patient in ED to ED transfer. Patient is stable and medically clear for transfer at this time. Departure - Departure Clinical Impression: Atrial fibrillation with RVR, Acute coronary syndrome Time of Disposition: 23:33 Disposition: Transfer to Hospital Condition: Fair Instructions: DI for Chest Pain Referrals: Stephen Loaiza MD [Primary Care Provider] - 1-2 Weeks Home Medications: Ambulatory Orders Allopurinol [Zyloprim] 100 mg PO BID 09/21/12 Fluoxetine HCl [Prozac] 20 mg PO DAILY 09/21/12 [place]den Carbonate [[place] Carbonate ER] 300 mg PO BID 09/21/12 HYDROcodone 7.5MG/APAP 325MG [[place] 7.5/325] 1 ea PO TID 09/04/14 Testosterone Cypionate 200 mg IM .[id number] 07/06/16 Carvedilol [Coreg] 12.5 mg PO DAILY 09/14/17 Lisinopril 20 mg PO DAILY 09/14/17 Nitroglycerin 0.4 mg Tab [Nitrostat] 1 tablet SL Q5MIN 12/19/17 Pravastatin Sodium 40 mg PO DAILY 12/26/18 Amlodipine Besylate 5 mg PO DAILY 10/11/19 Atorvastatin Calcium [Lipitor] 10 mg PO DAILY 10/11/19 Hydroxychloroquine Sulfate [Plaquenil] 200 mg PO DAILY 10/11/19 Icosapent Ethyl [Vascepa] 1 gm PO BID 10/11/19 Lisinopril & Hydrochlorothiazi [Lisinopril/Hydrochlorothi 10-12.5 mg] 1 tab PO DAILY 10/11/19 Prasugrel HCl [Prasugrel] 10 mg DAILY 10/11/19 Propranolol HCl [Propranolol Hydrochloride] 10 mg PO DAILY 10/11/19 Semaglutide [Ozempic] 2 mg SC DAILY 10/11/19 Albuterol Inhaler [Ventolin Hfa Inhaler] 1 puff INH Q4HR #1 inh 11/29/19 Furosemide [Lasix] 20 mg PO DAILY #14 tab 11/29/19 Transfer to Outside Facility - Transfer Information Decision to Transfer Date: 04/07/20 Decision to Transfer Time: 23:33 Reason for Transfer: required specialist not available Accepting Provider:: Dr. Calloway Accepting Facility: [facility]
[2020-04-07] MEDS ORDERED: ASPIRIN (CHEWABLE) 81 MG TAB PO ONE (21:59)
[2020-04-07] MEDS ORDERED: diltiaZEM DRIP 125 MG in SODIUM CHLORIDE 0.9% 100ML 100 ML IVPB SCH (22:00)
--- NOTE | 2020-04-07 22:12 | RAD ---
EXAM DESCRIPTION: Chest,1 View CLINICAL HISTORY: CP COMPARISON: 11/29/2019 FINDINGS: Single frontal radiograph view of the chest. Cardiomediastinal silhouette: Normal size and contour. Lungs: No consolidation, pneumothorax, or pleural effusion. Low lung volumes. Leads overlie the chest. Bones: No acute osseous abnormality. Upper abdomen: No abnormality identified. IMPRESSION: 1. No acute pulmonary process identified. Electronically signed by: Bakari Dejesus 04/07/2020 10:10 PM CDT
[2020-04-08 01:20] VITALS: BP 129/94; TEMP 98.7; O2SAT 99
== END 2020-04-08 00:35 | disposition short-term general hospital (02) ==
LOC: ER 21:30
DX: I48.91 Unspecified atrial fibrillation (principal); I25.10 Atherosclerotic heart disease of native coronary artery without angina pectoris; R00.0 Tachycardia, unspecified; E11.9 Type 2 diabetes mellitus without complications; I10 Essential (primary) hypertension; I25.2 Old myocardial infarction; Z95.5 Presence of coronary angioplasty implant and graft; Z85.828 Personal history of other malignant neoplasm of skin; Z87.891 Personal history of nicotine dependence; Z82.49 Family history of ischemic heart disease and other diseases of the circulatory system; Z79.899 Other long term (current) drug therapy; Z88.8 Allergy status to other drugs, medicaments and biological substances
CPT/HCPCS: 71045; 80053; 83880; 84484; 85025; 85610; 93005; J2270; J2405; J7030; J7050

== ENCOUNTER 2020-05-10 01:28 | Emergency (ER) | payer OTHER, MEDICAID ==
[2020-05-10] MEDS ORDERED: ASPIRIN (ENTERIC COATED) 325 MG TAB PO ONE (01:42)
--- NOTE | 2020-05-10 01:44 | ED.PDOC ---
History of Present Illness - General Time Seen by Provider: 05/10/20 01:41 Source: patient, RN notes reviewed, Vital Signs reviewed Additional Information: 49-year-old male patient, with history of coronary artery disease with previous PA in 2017, has not had a stress test in a long time, patient presents with a 1 day history of shortness of breath and chest tightness. Patient was at home with some chest discomfort when he was told that his father was diagnosed with COVID-19 so he decided to get himself checked, patient was able to walk with a steady gait, does not really distress able to speak in long complete sentences patient does not smoke but he does vape - History of Present Illness Timing/Duration: other - yesterday Severity/Quality: moderate Location: central Chest Pain Radiation: no radiation Activities at Onset: none Prior Chest Pain/Cardiac Workup: cardiac cath Improving Factors: nothing Worsening Factors: nothing Nitro Today/Relief: no nitro taken today Aspirin Treatment Today: no aspirin today Associated Symptoms: shortness of breath Allergies/Adverse Reactions: Allergies Rizatriptan [From Maxalt] Allergy (Verified 10/11/19 07:02) Sumatriptan [From Imitrex] Allergy (Verified 10/11/19 07:02) Home Medications: Ambulatory Orders Allopurinol [Zyloprim] 100 mg PO BID 09/21/12 Fluoxetine HCl [Prozac] 20 mg PO DAILY 09/21/12 Mclaughlin Carbonate [Mclaughlin Carbonate ER] 300 mg PO BID 09/21/12 HYDROcodone 7.5MG/APAP 325MG [[place] 7.5/325] 1 ea PO TID 09/04/14 Testosterone Cypionate 200 mg IM .[id number] 07/06/16 Carvedilol [Coreg] 12.5 mg PO DAILY 09/14/17 Lisinopril 20 mg PO DAILY 09/14/17 Nitroglycerin 0.4 mg Tab [Nitrostat] 1 tablet SL Q5MIN 12/19/17 Pravastatin Sodium 40 mg PO DAILY 12/26/18 Amlodipine Besylate 5 mg PO DAILY 10/11/19 Atorvastatin Calcium [Lipitor] 10 mg PO DAILY 10/11/19 Hydroxychloroquine Sulfate [Plaquenil] 200 mg PO DAILY 10/11/19 Icosapent Ethyl [Vascepa] 1 gm PO BID 10/11/19 Lisinopril & Hydrochlorothiazi [Lisinopril/Hydrochlorothi 10-12.5 mg] 1 tab PO DAILY 10/11/19 Prasugrel HCl [Prasugrel] 10 mg DAILY 10/11/19 Propranolol HCl [Propranolol Hydrochloride] 10 mg PO DAILY 10/11/19 Semaglutide [Ozempic] 2 mg SC DAILY 10/11/19 Albuterol Inhaler [Ventolin Hfa Inhaler] 1 puff INH Q4HR #1 inh 11/29/19 Furosemide [Lasix] 20 mg PO DAILY #14 tab 11/29/19 Review of Systems - Review of Systems Constitutional: States: no symptoms reported EENTM: States: no symptoms reported Respiratory: States: cough, short of breath Cardiology: States: chest pain Gastrointestinal/Abdominal: States: no symptoms reported Genitourinary: States: no symptoms reported Musculoskeletal: States: no symptoms reported Skin: States: no symptoms reported Neurological: States: no symptoms reported Endocrine: States: no symptoms reported Hematologic/Lymphatic: States: no symptoms reported Past Medical History (General) - Patient Medical History Hx Seizures: No Hx Stroke: No Hx Dementia: No Hx Asthma: No Hx of COPD: No Hx Cardiac Disorders: Yes - PA X 2 Stints X 2 Hx Congestive Heart Failure: No Hx Pacemaker: No Hx Hypertension: Yes Hx Thyroid Disease: No Hx Diabetes: Yes Hx Gastroesophageal Reflux: No Hx Renal Disease: No Hx Cancer: Yes - Skin Hx of HIV: No Hx Hepatitis C: No Hx MRSA: Yes MRSA Source:: Wound - Vaccination History Hx Tetanus, Diphtheria Vaccination: Yes Hx Influenza Vaccination: No Hx Pneumococcal Vaccination: No - Social History Hx Tobacco Use: Yes Hx Chewing Tobacco Use: No Hx Alcohol Use: No Hx Substance Use: No Hx Substance Use Treatment: No Hx Depression: No Hx Physical Abuse: No Hx Emotional Abuse: No Hx Suspected Abuse: No - Female History Patient : No Family Medical History - Family History Mother Family History: Unknown Living Status: Unknown Hx Family Hypertension: Yes Hx Cardiac Disease: Yes - Father states he was diagnosed with first PA at 36 y/o Physical Exam - Physical Exam General Appearance: Alert, Well Developed, Well Groomed, Well Hydrated, Well Nourished Eyes, Ears, Nose, Throat Exam: PERRL/EOMI, normal ENT inspection, TMs normal, pharynx normal Neck: non-tender, full range of motion, supple, normal inspection Respiratory: chest non-tender, lungs clear, normal breath sounds, no respiratory distress, no accessory muscle use Cardiovascular/Chest: normal peripheral pulses, regular rate, rhythm, no edema, no gallop, no JVD, no murmur Peripheral Pulses: radial,right: 2+, radial,left: 2+ Gastrointestinal/Abdominal: normal bowel sounds, non tender, soft, no organomegaly, no pulsatile mass Extremity: normal range of motion, non-tender, normal inspection, no pedal edema, no calf tenderness 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 Patient denies any fever chills. This patient does have a history of coronary disease with previous heart attack, has not had a stress test in 2 years, patient EKG shows atrial fibrillation which I did give him a dose of IV Cardizem his heart rate went from 118 to 87, patient does have any chest pain at the moment. 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 personnel representative as an outpatient, patient does not feel any distress prior to discharge, patient Covid test was negative and D-dimer was also negative which rule out viral syndrome and pulmonary emboli To the ER immediately if there is any chest pressure, nausea, vomiting, shortness of breath fever chills stinging sensation in the chest variation to the left arm right arm both arms neck back or jaw sensation of fainting excessive sweating crushing chest pain radiation to the back shortness of breath with minimal exertion, fatigue unable to speak in long complete sentences due to shortness of breath or any other concerns Will be discharged home with a second set of troponins are negative 05/10/20 03:46 05/10/20 03:51 Departure - Departure Clinical Impression: Chest pain Qualifiers: Chest pain type: unspecified Qualified Code(s): R07.9 - Chest pain, unspecified Atrial fibrillation Qualifiers: Atrial fibrillation type: unspecified Qualified Code(s): I48.91 - Unspecified atrial fibrillation Disposition: Discharge to Home or Self Care Condition: Fair Instructions: Chest Pain, Atrial Fibrillation (DC) Diet: resume usual diet Referrals: Stephen Loaiza MD [Primary Care Provider] - 1-2 Weeks Home Medications: Ambulatory Orders Allopurinol [Zyloprim] 100 mg PO BID 09/21/12 Fluoxetine HCl [Prozac] 20 mg PO DAILY 09/21/12 Mclaughlin Carbonate [[place] Carbonate ER] 300 mg PO BID 09/21/12 HYDROcodone 7.5MG/APAP 325MG [[place] 7.5/325] 1 ea PO TID 09/04/14 Testosterone Cypionate 200 mg IM .[id number] 07/06/16 Carvedilol [Coreg] 12.5 mg PO DAILY 09/14/17 Lisinopril 20 mg PO DAILY 09/14/17 Nitroglycerin 0.4 mg Tab [Nitrostat] 1 tablet SL Q5MIN 12/19/17 Pravastatin Sodium 40 mg PO DAILY 12/26/18 Amlodipine Besylate 5 mg PO DAILY 10/11/19 Atorvastatin Calcium [Lipitor] 10 mg PO DAILY 10/11/19 Hydroxychloroquine Sulfate [Plaquenil] 200 mg PO DAILY 10/11/19 Icosapent Ethyl [Vascepa] 1 gm PO BID 10/11/19 Lisinopril & Hydrochlorothiazi [Lisinopril/Hydrochlorothi 10-12.5 mg] 1 tab PO DAILY 10/11/19 Prasugrel HCl [Prasugrel] 10 mg DAILY 10/11/19 Propranolol HCl [Propranolol Hydrochloride] 10 mg PO DAILY 10/11/19 Semaglutide [Ozempic] 2 mg SC DAILY 10/11/19 Albuterol Inhaler [Ventolin Hfa Inhaler] 1 puff INH Q4HR #1 inh 11/29/19 Furosemide [Lasix] 20 mg PO DAILY #14 tab 11/29/19 Additional Instructions: ER immediately if there is any chest pressure, nausea, vomiting, shortness of breath fever chills stinging sensation in the chest variation to the left arm right arm both arms neck back or jaw sensation of fainting excessive sweating crushing chest pain radiation to the back shortness of breath with minimal exertion, fatigue unable to speak in long complete sentences due to shortness of breath or any other concerns
[2020-05-10] MEDS ORDERED: ONDANSETRON INJ 4 MG/2 ML VIAL IV ONE (01:48)
[2020-05-10] MEDS ORDERED: ASPIRIN TABLET 325 MG TAB ONE (01:57)
[2020-05-10] MEDS: MORPHINE SULFATE INJ 10 MG/ML VIAL IV ONE ×2 (02:10→02:11)
[2020-05-10] MEDS ORDERED: ASPIRIN TABLET 325 MG TAB PO ONE (02:12)
--- NOTE | 2020-05-10 02:12 | RAD ---
EXAM: XR Chest, 1 View CLINICAL HISTORY: The patient is 49 years old and is Male; chest pain TECHNIQUE: Frontal view of the chest. COMPARISON: No relevant prior studies available. FINDINGS: Lungs: Unremarkable. No consolidation. Pleural space: Unremarkable. No pneumothorax. Heart: Unremarkable. No cardiomegaly. Mediastinum: Unremarkable. Bones/joints: Unremarkable. IMPRESSION: Normal chest x-ray. Electronically signed by: Сергей Iniguez MD 05/10/2020 2:11 AM [facility]
[2020-05-10 02:50] VITALS: TEMP 96.8
[2020-05-10 04:35] VITALS: BP 92/64; O2SAT 97
== END 2020-05-10 04:34 | disposition home or self-care (01) ==
LOC: ER 01:28
DX: R07.9 Chest pain, unspecified (principal); I48.91 Unspecified atrial fibrillation; R06.02 Shortness of breath; I25.10 Atherosclerotic heart disease of native coronary artery without angina pectoris; I25.2 Old myocardial infarction; F17.290 Nicotine dependence, other tobacco product, uncomplicated; I10 Essential (primary) hypertension; E11.9 Type 2 diabetes mellitus without complications; Z20.828 Contact with and (suspected) exposure to other viral communicable diseases; Z85.828 Personal history of other malignant neoplasm of skin; Z95.5 Presence of coronary angioplasty implant and graft; Z79.899 Other long term (current) drug therapy; Z88.8 Allergy status to other drugs, medicaments and biological substances
CPT/HCPCS: 71045; 80053; 82550; 83615; 83735; 83880; 84484; 85025; 85379; 85730; 86140; 87635; 93005; J2270; J2405